=== PATIENT | male | born 1975 ===

== ENCOUNTER 2017-12-28 14:59 | Inpatient (IN) | payer OTHER ==
--- NOTE | 2017-12-28 15:41 | C.PDOC ---
History Of Present Illness NEW ONSET HEMOPTYSIS X 2 DAYS. +SUBJ FEVER X 4 DAYS. DENIES VOMITING, HEMETEMESIS. NO CP, SOB. DENIES SICK CONTACT OR OUTSIDE US TRAVEL EXAM MILD DIST NONTOXIC HEENT NEG LUNGS +ACTIVE HEMOPTYSIS CTA B/L NO WHEEZE RALES NO EDEMA CV RRR REMAINDER NEG Time Seen by Provider: 12/28/17 15:17 Chief Complaint (Nursing): Abdominal Pain History Per: Patient History/Exam Limitations: no limitations Past Medical History Reviewed: Historical Data, Nursing Documentation, Vital Signs Vital Signs: Last Vital Signs Temp 98.2 F 12/28/17 15:07 Pulse 93 H 12/28/17 16:26 Resp 20 12/28/17 16:26 BP 147/88 12/28/17 16:26 Pulse Ox 98 12/28/17 17:43 Family History: States: No Known Family Hx - Social History Hx Alcohol Use: No Hx Substance Use: No - Immunization History Hx Tetanus Toxoid Vaccination: No Hx Influenza Vaccination: No Hx Pneumococcal Vaccination: No Review Of Systems Constitutional: Positive for: Fever. Negative for: Weakness Cardiovascular: Negative for: Chest Pain, Orthopnea Respiratory: Positive for: Hemoptysis Gastrointestinal: Negative for: Vomiting, Hematochezia, Hematemesis Genitourinary: Negative for: Dysuria Musculoskeletal: Negative for: Back Pain Neurological: Negative for: Weakness, Numbness, Headache, Dizziness Physical Exam - Physical Exam Appears: Non-toxic, No Acute Distress Skin: Warm, Dry, No Rash Head: Normacephalic Oral Mucosa: Moist Lips: Normal Appearing Neck: Normal ROM Chest: Symmetrical Cardiovascular: Rhythm Regular, No Murmur Respiratory: Other (+ACTIVE HEMOPTYSIS CTA B/L NO WHEEZE RALES) Extremity: Normal ROM, No Deformity, No Swelling Neurological/Psych: Oriented x3, Normal Speech ED Course And Treatment - Laboratory Results Result Diagrams: 12/28/17 15:50 12/28/17 15:50 ECG: Interpreted By Me ECG Rhythm: Sinus Rhythm ECG Interpretation: Normal Rate From EC O2 Sat by Pulse Oximetry: 98 (RA) Pulse Ox Interpretation: Normal Progress - Re-Evaluation Re-evaluation Note: 12/28/17 17:43 NARD VSS. NO RECUR HEMOPTYSIS SINCE INITIAL EVAL. CT PENDING 12/28/17 18:32 D/[facility] AWARE OF ER FINDINGS WILL ADMIT. ADMIT UNDER DR IBANEZ - Data Reviewed Data Reviewed: Lab, Diagnostic imaging, EKG, Old records - Critical Care Citical Care: Excluding Proc Time Critical Care Time: 120 minutes Disposition Counseled Patient/Family Regarding: Studies Performed, Diagnosis - Disposition Disposition: HOSPITALIZED Disposition Time: 18:29 Condition: STABLE Forms: [facility] (Albanian) - POA Present On Arrival: None - Clinical Impression Clinical Impression: Pneumonia, Hemoptysis, Hypokalemia - Scribe Statement The provider has reviewed the documentation as recorded by the Scribe (Jemima Boyd) All medical record entries made by the Scribe were at my direction and personally dictated by me. I have reviewed the chart and agree that the record accurately reflects my personal performance of the history, physical exam, medical decision making, and the department course for this patient. I have also personally directed, reviewed, and agree with the discharge instructions and disposition. Decision To Admit - Pt Status Changed To: Hospital Disposition Of: Inpatient - Admit Certification Admit to Inpatient:: After my assessment, the patient will require hospitalization for at least two midnights. This is because of the severity of symptoms shown, intensity of services needed, and/or the medical risk in this patient being treated as an outpatient. - InPatient: Physician Admission Certification: I certify that this patient requires 2 or more midnights of care for the following reason:: SEE NOTE - . Bed Request Type: Regular Admitting Physician: Cas Ibanez Patient Diagnosis: Pneumonia, Hemoptysis, Hypokalemia
[2017-12-28 16:00] LABS: BASO % 0.6 % (0.0-2.0); EOS # 0.1 K/uL (0.0-0.7); EOS % 1.2 % (0.0-4.0); HEMOGLOBIN 11.3 g/dL (12.0-18.0); LYMPH # 2.9 K/uL (1.0-4.3); LYMPH % 43.6 % (20.0-40.0); MEAN CORPUSCULAR HEMOGLOBIN 21.4 pg (27.0-31.0); MEAN CORPUSCULAR HGB CONC 31.9 g/dL (33.0-37.0); MEAN PLATELET VOLUME 8.8 fL (7.2-11.7); MONO # 0.5 K/uL (0.0-0.8); MONO % 6.8 % (0.0-10.0); NEUT # 3.2 K/uL (1.8-7.0); NEUT % 47.8 % (50.0-75.0); NRBC % 0.1 % (0.0-2.0); RBC 5.26 Mil/uL (4.40-5.90); WHITE BLOOD COUNT 6.7 K/uL (4.8-10.8)
[2017-12-28 16:03] LABS: MEAN CELL VOLUME 67.1 fL (80.0-94.0)
[2017-12-28 16:12] LABS: ALBUMIN 4.3 g/dL (3.5-5.0); ALT/SGPT 69 U/L (21-72); AST/SGOT 54 U/L (17-59); BLOOD UREA NITROGEN 7 mg/dL (9-20); CALCIUM 8.8 mg/dl (8.6-10.4); GFR AFRICAN-AMERICAN > 60; GFR NON-AFRICAN AMERICAN > 60
--- NOTE | 2017-12-28 16:17 | RAD ---
PROCEDURE: CHEST RADIOGRAPH, 1 VIEW HISTORY: Pneumonia COMPARISON: No prior FINDINGS: LUNGS: Vague patchy opacity seen in the left lung base could represent atelectasis versus developing infiltrate. Suspect minor right basilar atelectasis. Slight elevation right hemidiaphragm PLEURA: No pneumothorax or pleural fluid seen. CARDIOVASCULAR: Cardiomegaly. OSSEOUS STRUCTURES: No significant abnormalities. VISUALIZED UPPER ABDOMEN: Normal. OTHER FINDINGS: None. IMPRESSION: Vague patchy opacity seen in the left lung base could represent atelectasis versus developing infiltrate. Suspect minor right basilar atelectasis. Slight elevation right hemidiaphragm
[2017-12-28] MEDS ORDERED: Potassium Chloride 20 mEq/15 ml LIQ UD PO STA (16:27)
[2017-12-28 16:31] LABS: URINE BILIRUBIN NEGATIVE (NEGATIVE); URINE BLOOD NEGATIVE (NEGATIVE); URINE CLARITY Clear (Clear); URINE COLOR Straw (YELLOW); URINE GLUCOSE (UA) NORMAL (Normal); URINE LEUKOCYTE ESTERASE NEG Leu/uL (Negative); URINE PROTEIN NEGATIVE (NEGATIVE); URINE UROBILINOGEN NORMAL mg/dL (0.2-1.0)
[2017-12-28] MEDS ORDERED: Sodium Chloride 0.9% 1,000 ML ONE ×2 (16:42→20:34)
[2017-12-28] MEDS ORDERED: Potassium Chloride 20 mEq ER Tab PO ONE (16:42)
[2017-12-28] MEDS ORDERED: Iodixanol 320 MG/ML 100 ML BOTTLE IV ONE (17:57)
[2017-12-28] MEDS ORDERED: Azithromycin 500 MG in Sodium Chloride 0.9% 250 ML IV STA (18:28)
[2017-12-28] MEDS ORDERED: Azithromycin 500mg/250ML NS 500 MG/250 ML BAG IVPB ONE (18:51)
[2017-12-28 19:06] LABS: VENOUS BLOOD GAS BASE EXCESS 3.2 mmol/L (0.0-2.0); VENOUS BLOOD GAS PCO2 45 mmHg (40-60); VENOUS BLOOD GAS PO2 45 mm/Hg (30-55); VENOUS BLOOD PH 7.41 (7.32-7.43)
[2017-12-28] MEDS ORDERED: cefTRIAXone IV 1 gm in Dextros 50 ML IVPB ONE (19:20)
--- NOTE | 2017-12-28 20:15 | CP.PCM.HP ---
<Krish Lee Gennaro - Last Filed: 12/28/17 20:23> History of Present Illness - History of Present Illness History of Present Illness: CC: "I'm coughing up blood" HPI: Mr Plasencia is a 42 year old male with no significant past medical history who presents to [facility] because of fever, chills and hemoptysis which began 2 days ago. He says he was at work 2 days ago when he felt chills and shortly thereafter he fainted. He does not remember hitting his head. His co- workers say he was out for about 4 minutes. He came to then went home and felt fevers and began to have episodes of coughing up blood (with clots). He also endorses pleuritic chest pain (mid-sternal) worse with inspiration, loss of appetite, night sweats, malaise, all which have also occurred the past 2 days. All of these symptoms became progressively worse thus he came to the ER. He did not take any medications. He denies sputum production, emesis, weight loss, dysuria, alcohol use, tobacco use. 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 He came from [facility] 17 years ago and denies a hx of tuberculosis, or ever receiving shots for TB. He denies sick contacts, recent travel. PMD: none PMHx: none PSHx: none Allergies: NKA Home Meds: none FamHx: denies SocialHx: Denies tobacco use, alcohol use, illicit drug use. Lives with aunt at home. Works at a [employer] plant. From [facility], arrived 17 years ago and has not returned. Present on Admission - Present on Admission Any Indicators Present on Admission: No Review of Systems - Constitutional Constitutional: Chills, Fatigue, Fever, Lethargy, Malaise, Night Sweats, Weakness. absent: Headache - EENT Eyes: absent: Change in Vision Ears: absent: Ear Pain Nose/Mouth/Throat: absent: Epistaxis, Nasal Discharge, Bleeding Gums, Dysphagia - Cardiovascular Cardiovascular: Chest Pain, Diaphoresis. absent: Dyspnea, Palpitations, Pedal Edema - Respiratory Respiratory: Cough, Hemoptysis, Pain on Inspiration, Chest Congestion, Pain with Coughing. absent: Wheezing, Stridor, Excessive Mucous Production - Gastrointestinal Gastrointestinal: absent: Abdominal Pain, Constipation, Diarrhea - Genitourinary Genitourinary: absent: Dysuria - Musculoskeletal Musculoskeletal: absent: Arthralgias - Integumentary Integumentary: absent: Bleeding Lesions - Neurological Neurological: absent: Confusion, Dizziness Past Patient History - Infectious Disease Hx of Infectious Diseases: None - Past Social History Smoking Status: Never Smoked - PSYCHIATRIC Hx Substance Use: No - SURGICAL HISTORY Hx Surgeries: Yes Meds Allergies/Adverse Reactions: Allergies Allergy/AdvReac Type Severity Reaction Status Date / Time NSAIDS (Non-Steroidal Allergy Verified 12/28/17 20:54 Anti-Inflamma Physical Exam - Constitutional Appears: Well, No Acute Distress - Head Exam Head Exam: ATRAUMATIC, NORMAL INSPECTION - Eye Exam Eye Exam: EOMI Pupil Exam: PERRL - ENT Exam ENT Exam: Mucous Membranes Moist - Neck Exam Neck exam: Positive for: Normal Inspection. Negative for: Lymphadenopathy, Tenderness - Respiratory Exam Respiratory Exam: Decreased Breath Sounds, Rhonchi, Wheezes Additional comments: Decreased inspiratory effort - Unable to take a deep breath without coughing - Cardiovascular Exam Cardiovascular Exam: REGULAR RHYTHM, +S1, +S2. absent: JVD, Systolic Murmur - GI/Abdominal Exam GI & Abdominal Exam: Normal Bowel Sounds, Soft. absent: Distended, Firm, Guarding, Tenderness - Extremities Exam Extremities exam: Positive for: normal capillary refill, normal inspection, pedal pulses present. Negative for: tenderness - Neurological Exam Neurological exam: Alert, CN II-XII Intact, Oriented x3 - Skin Skin Exam: Intact, Normal Color, Warm Results - Vital Signs Recent Vital Signs: Last Vital Signs Temp 98.2 F 12/28/17 15:07 Pulse 93 H 12/28/17 16:26 Resp 20 12/28/17 16:26 BP 147/88 12/28/17 16:26 Pulse Ox 98 12/28/17 18:32 - Labs Result Diagrams: 12/28/17 15:50 12/28/17 15:50 Labs: Laboratory Results - last 24 hr 12/28/17 12/28/17 12/28/17 15:50 15:50 15:50 WBC 6.7 RBC 5.26 Hgb 11.3 L Hct 35.3 MCV 67.1 L MCH 21.4 L MCHC 31.9 L RDW 17.0 H Plt Count 209 MPV 8.8 Neut % (Auto) 47.8 L Lymph % (Auto) 43.6 H [place] % (Auto) 6.8 Eos % (Auto) 1.2 Baso % (Auto) 0.6 Neut # (Auto) 3.2 Lymph # (Auto) 2.9 [place] # (Auto) 0.5 Eos # (Auto) 0.1 Baso # (Auto) 0.0 Differential Comment D-Dimer, Quantitative < 200 pO2 VBG pH VBG pCO2 VBG HCO3 VBG Total CO2 VBG O2 Sat (Calc) VBG Base Excess VBG Potassium Glucose Lactate Sodium 143 Potassium 3.1 L Chloride 101 Carbon Dioxide 25 Anion Gap 20 BUN 7 L Creatinine 0.8 Est GFR ( Amer) > 60 Est GFR (Non-Af Amer) > 60 Random Glucose 110 Calcium 8.8 Total Bilirubin 0.7 AST 54 ALT 69 Alkaline Phosphatase 65 Total Protein 8.7 H Albumin 4.3 Globulin 4.4 H Albumin/Globulin Ratio 1.0 Venous Blood Potassium Urine Color Urine Clarity Urine pH Ur Specific [place] Urine Protein Urine Glucose (UA) Urine Ketones Urine Blood Urine Nitrate Urine Bilirubin Urine Urobilinogen Ur Leukocyte Esterase Urine WBC (Auto) Urine RBC (Auto) Influenza Typ A,B (EIA) 12/28/17 12/28/17 12/28/17 16:26 18:33 19:00 WBC RBC Hgb Hct MCV MCH MCHC RDW Plt Count MPV Neut % (Auto) Lymph % (Auto) [place] % (Auto) Eos % (Auto) Baso % (Auto) Neut # (Auto) Lymph # (Auto) [place] # (Auto) Eos # (Auto) Baso # (Auto) Differential Comment D-Dimer, Quantitative pO2 45 VBG pH 7.41 VBG pCO2 45 VBG HCO3 27.0 VBG Total CO2 29.9 H VBG O2 Sat (Calc) 81.7 H VBG Base Excess 3.2 H VBG Potassium 3.4 L Glucose 90 Lactate 0.8 Sodium 141.0 Potassium Chloride 107.0 Carbon Dioxide Anion Gap BUN Creatinine Est GFR ( Amer) Est GFR (Non-Af Amer) Random Glucose Calcium Total Bilirubin AST ALT Alkaline Phosphatase Total Protein Albumin Globulin Albumin/Globulin Ratio Venous Blood Potassium 3.4 L Urine Color Straw Urine Clarity Clear Urine pH 7.0 Ur Specific [place] 1.004 Urine Protein Negative Urine Glucose (UA) Normal Urine Ketones Negative Urine Blood Negative Urine Nitrate Negative Urine Bilirubin Negative Urine Urobilinogen Normal Ur Leukocyte Esterase Neg Urine WBC (Auto) < 1 Urine RBC (Auto) < 1 Influenza Typ A,B (EIA) Negative for flu a/b Assessment & Plan (1) Hemoptysis Assessment and Plan: Likely 2/2 to community acquired pneumonia, will need to rule out tuberculosis No leukocytosis, afebrile, anemia 2/2 to hemoptysis - monitor Hgb Airbone respiratory isolation Encourage incentive spirometry Q2H Labs/Diagnostics: UA: NORMAL F/U procalcitonin F/U legionella Ag urine, rapid strep, mycoplasma pneumoniae IgM, strep pneumoniae Ag urine F/U Blood Cx, Urine Cx, Sputum Cx F/U HIV F/U Quantiferon TB Gold Imaging: CXR 12/28/17: Vague patchy opacity seen in left lung base could represent atelectasis versus developing infiltrate. CT Chest w/ contrast 12/28/17: Pending official read Meds: Azithromycin 500mg IVPB QD Ceftriaxone 1g IVPB Q12H Tylenol 650mg PO Q6H PRN for temp > 100.4 Florastor 250mg PO BID Status: Acute Priority: High (2) Syncope Assessment and Plan: Syncopal episode 2 days prior to admission likely secondary to weakness and dehydration from respiratory infx Need to rule out other etiologies Labs/Diagnostics: EKG - NSR, Indeterminate axis F/U Lipid Panel, TSH/Free T4, GUADALUPE panel Imaging: F/U Head CT w/o contrast: F/U Brain MRI w/o contrast: F/U ECHO: F/U Carotid Dopplers: Meds: NS IV 100cc/hr Status: Acute Priority: High (3) Prophylactic measure Assessment and Plan: Heart healthy diet Protonix 40mg PO QD AO contraindicated 2/2 to hemoptysis SCDs Status: Acute Priority: Low <Cas Ibanez - Last Filed: 12/29/17 06:21> Results - Vital Signs Recent Vital Signs: Last Vital Signs Temp 98.3 F 12/29/17 00:46 Pulse 83 12/29/17 01:33 Resp 20 12/29/17 00:46 BP 107/71 12/29/17 00:46 Pulse Ox 97 12/29/17 00:46 - Labs Result Diagrams: 12/28/17 15:50 12/28/17 15:50 Labs: Laboratory Results - last 24 hr 12/28/17 12/28/17 12/28/17 15:50 15:50 15:50 WBC 6.7 RBC 5.26 Hgb 11.3 L Hct 35.3 MCV 67.1 L MCH 21.4 L MCHC 31.9 L RDW 17.0 H Plt Count 209 MPV 8.8 Neut % (Auto) 47.8 L Lymph % (Auto) 43.6 H [place] % (Auto) 6.8 Eos % (Auto) 1.2 Baso % (Auto) 0.6 Neut # (Auto) 3.2 Lymph # (Auto) 2.9 [place] # (Auto) 0.5 Eos # (Auto) 0.1 Baso # (Auto) 0.0 Differential Comment D-Dimer, Quantitative < 200 pO2 VBG pH VBG pCO2 VBG HCO3 VBG Total CO2 VBG O2 Sat (Calc) VBG Base Excess VBG Potassium Glucose Lactate Sodium 143 Potassium 3.1 L Chloride 101 Carbon Dioxide 25 Anion Gap 20 BUN 7 L Creatinine 0.8 Est GFR ( Amer) > 60 Est GFR (Non-Af Amer) > 60 Random Glucose 110 Calcium 8.8 Total Bilirubin 0.7 AST 54 ALT 69 Alkaline Phosphatase 65 Total Creatine Kinase CK-MB (Mass) Troponin I Total Protein 8.7 H Albumin 4.3 Globulin 4.4 H Albumin/Globulin Ratio 1.0 Procalcitonin Venous Blood Potassium Urine Color Urine Clarity Urine pH Ur Specific [place] Urine Protein Urine Glucose (UA) Urine Ketones Urine Blood Urine Nitrate Urine Bilirubin Urine Urobilinogen Ur Leukocyte Esterase Urine WBC (Auto) Urine RBC (Auto) Influenza Typ A,B (EIA) Ur L.pneumophila Ag Grp A Beta Strep Ag 12/28/17 12/28/17 12/28/17 16:26 18:33 19:00 WBC RBC Hgb Hct MCV MCH MCHC RDW Plt Count MPV Neut % (Auto) Lymph % (Auto) [place] % (Auto) Eos % (Auto) Baso % (Auto) Neut # (Auto) Lymph # (Auto) [place] # (Auto) Eos # (Auto) Baso # (Auto) Differential Comment D-Dimer, Quantitative pO2 45 VBG pH 7.41 VBG pCO2 45 VBG HCO3 27.0 VBG Total CO2 29.9 H VBG O2 Sat (Calc) 81.7 H VBG Base Excess 3.2 H VBG Potassium 3.4 L Glucose 90 Lactate 0.8 Sodium 141.0 Potassium Chloride 107.0 Carbon Dioxide Anion Gap BUN Creatinine Est GFR ( Amer) Est GFR (Non-Af Amer) Random Glucose Calcium Total Bilirubin AST ALT Alkaline Phosphatase Total Creatine Kinase CK-MB (Mass) Troponin I Total Protein Albumin Globulin Albumin/Globulin Ratio Procalcitonin Venous Blood Potassium 3.4 L Urine Color Straw Urine Clarity Clear Urine pH 7.0 Ur Specific [place] 1.004 Urine Protein Negative Urine Glucose (UA) Normal Urine Ketones Negative Urine Blood Negative Urine Nitrate Negative Urine Bilirubin Negative Urine Urobilinogen Normal Ur Leukocyte Esterase Neg Urine WBC (Auto) < 1 Urine RBC (Auto) < 1 Influenza Typ A,B (EIA) Negative for flu a/b Ur L.pneumophila Ag Grp A Beta Strep Ag 12/28/17 12/28/17 12/28/17 20:19 20:38 20:43 WBC RBC Hgb Hct MCV MCH MCHC RDW Plt Count MPV Neut % (Auto) Lymph % (Auto) [place] % (Auto) Eos % (Auto) Baso % (Auto) Neut # (Auto) Lymph # (Auto) [place] # (Auto) Eos # (Auto) Baso # (Auto) Differential Comment D-Dimer, Quantitative pO2 VBG pH VBG pCO2 VBG HCO3 VBG Total CO2 VBG O2 Sat (Calc) VBG Base Excess VBG Potassium Glucose Lactate Sodium Potassium Chloride Carbon Dioxide Anion Gap BUN Creatinine Est GFR ( Amer) Est GFR (Non-Af Amer) Random Glucose Calcium Total Bilirubin AST ALT Alkaline Phosphatase Total Creatine Kinase 347 H CK-MB (Mass) 1.01 Troponin I < 0.0120 Total Protein Albumin Globulin Albumin/Globulin Ratio Procalcitonin Venous Blood Potassium Urine Color Urine Clarity Urine pH Ur Specific [place] Urine Protein Urine Glucose (UA) Urine Ketones Urine Blood Urine Nitrate Urine Bilirubin Urine Urobilinogen Ur Leukocyte Esterase Urine WBC (Auto) Urine RBC (Auto) Influenza Typ A,B (EIA) Ur L.pneumophila Ag Negative Grp A Beta Strep Ag Negative 12/28/17 20:43 WBC RBC Hgb Hct MCV MCH MCHC RDW Plt Count MPV Neut % (Auto) Lymph % (Auto) [place] % (Auto) Eos % (Auto) Baso % (Auto) Neut # (Auto) Lymph # (Auto) [place] # (Auto) Eos # (Auto) Baso # (Auto) Differential Comment D-Dimer, Quantitative pO2 VBG pH VBG pCO2 VBG HCO3 VBG Total CO2 VBG O2 Sat (Calc) VBG Base Excess VBG Potassium Glucose Lactate Sodium Potassium Chloride Carbon Dioxide Anion Gap BUN Creatinine Est GFR ( Amer) Est GFR (Non-Af Amer) Random Glucose Calcium Total Bilirubin AST ALT Alkaline Phosphatase Total Creatine Kinase CK-MB (Mass) Troponin I Total Protein Albumin Globulin Albumin/Globulin Ratio Procalcitonin < 0.05 L Venous Blood Potassium Urine Color Urine Clarity Urine pH Ur Specific [place] Urine Protein Urine Glucose (UA) Urine Ketones Urine Blood Urine Nitrate Urine Bilirubin Urine Urobilinogen Ur Leukocyte Esterase Urine WBC (Auto) Urine RBC (Auto) Influenza Typ A,B (EIA) Ur L.pneumophila Ag Grp A Beta Strep Ag Assessment & Plan - Date & Time Date: 12/29/17 (I have seen and examined the patient. I agree with the findings and plan of care as documented by Dr. Lee. Patient with pneumonia. Sputum and blood cultures. Azithromycin and Rocephin for now. Also with hemoptysis. Respiratory isolation. Rule out TB. Also complained of syncopal episode. CT head. 2D Echo. Carotid dopplers. Fall precautions. Monitor for acute changes.) Time: 06:19 Attending/Attestation - Attestation I have personally seen and examined this patient.: Yes I have fully participated in the care of the patient.: Yes I have reviewed all pertinent clinical information: Yes
[2017-12-28] MEDS: Sodium Chloride 0.9% 1,000 ML IV SCH (20:40)
[2017-12-28 21:18] LABS: CK-MB 1.01 ng/mL (0.0-3.38)
[2017-12-29] MEDS: Sodium Chloride 0.9% 1,000 ML IV SCH ×2 (06:48→16:55)
[2017-12-29 07:51] LABS: BASO % 0.2 % (0.0-2.0); EOS # 0.1 K/uL (0.0-0.7); EOS % 1.6 % (0.0-4.0); HEMOGLOBIN 9.8 g/dL (12.0-18.0); LYMPH # 1.9 K/uL (1.0-4.3); LYMPH % 28.7 % (20.0-40.0); MEAN CORPUSCULAR HEMOGLOBIN 21.6 pg (27.0-31.0); MEAN CORPUSCULAR HGB CONC 32.2 g/dL (33.0-37.0); MEAN PLATELET VOLUME 8.9 fL (7.2-11.7); MONO # 0.5 K/uL (0.0-0.8); MONO % 7.7 % (0.0-10.0); NEUT # 4.2 K/uL (1.8-7.0); NEUT % 61.8 % (50.0-75.0); RBC 4.53 Mil/uL (4.40-5.90); RED CELL DISTRIBUTION WIDTH 16.7 % (11.5-14.5); WHITE BLOOD COUNT 6.8 K/uL (4.8-10.8)
[2017-12-29 08:06] LABS: ALBUMIN 3.5 g/dL (3.5-5.0); ALT/SGPT 47 U/L (21-72); AST/SGOT 37 U/L (17-59); BLOOD UREA NITROGEN 7 mg/dL (9-20); CALCIUM 8.3 mg/dl (8.6-10.4); GFR AFRICAN-AMERICAN > 60; GFR NON-AFRICAN AMERICAN > 60; HDL CHOLESTEROL 22 mg/dL (30-70); LDL CHOLESTEROL 54 mg/dL (0-129)
--- NOTE | 2017-12-29 08:28 | CP.PCM.PN ---
<Guerita Denson - Last Filed: 12/29/17 16:04> Subjective - Date & Time of Evaluation Date of Evaluation: 12/29/17 Time of Evaluation: 10:50 - Subjective Subjective: PGY 2 Medicine Note- Dr. Radford's service Patient seen and examined in no apparent acute distress. Patient accompanied by aunt and family friends bedside. Per aunt, patient was having repeated coughing spells of hemoptysis which increased over the course of the past two days. Patient states that he coughed up some some blood as well overnight. Patient denies chest pain, headaches, nausea, vomiting, or recent travel. Objective - Vital Signs/Intake and Output Vital Signs (last 24 hours): Temp Pulse Resp BP Pulse Ox 98.3 F 83 20 107/71 97 12/29/17 00:46 12/29/17 01:33 12/29/17 00:46 12/29/17 00:46 12/29/17 00:46 - Medications Medications: Current Medications Acetaminophen (Tylenol 325mg Tab) 650 mg PO Q6 PRN PRN Reason: Fever >100.4 F Azithromycin 500 mg/ Sodium (Chloride) 250 mls @ 166.667 mls/hr IVPB DAILY JOHN PRN Reason: Protocol Ceftriaxone Sodium 1 gm/ (Sodium Chloride) 100 mls @ 100 mls/hr IVPB Q12H JOHN PRN Reason: Protocol Sodium Chloride (Sodium Chloride 0.9%) 1,000 mls @ 100 mls/hr IV .Q10H [facility] Last Admin: 12/29/17 06:48 Dose: 100 mls/hr Pantoprazole Sodium (Protonix Ec Tab) 40 mg PO DAILY [facility] Pneumococcal Polyvalent Vaccine (Pneumovax 23 Vaccine) 0.5 ml IM .ONCE ONE Stop: 12/31/17 14:01 Saccharomyces Boulardii (Florastor) 250 mg PO BID JOHN - Labs Labs: 12/29/17 07:27 12/29/17 07:27 - Constitutional Appears: Non-toxic, No Acute Distress - Head Exam Head Exam: ATRAUMATIC, NORMAL INSPECTION, NORMOCEPHALIC - Eye Exam Eye Exam: EOMI, Normal appearance, PERRL Pupil Exam: NORMAL ACCOMODATION - ENT Exam ENT Exam: Mucous Membranes Moist - Neck Exam Neck Exam: Full ROM - Respiratory Exam Respiratory Exam: Decreased Breath Sounds (left lower lung mahajan). absent: Chest Wall Tenderness, Clear to Ausculation Bilateral, Prolonged Expiratory Phase, Wheezes, Stridor - Cardiovascular Exam Cardiovascular Exam: +S1, +S2 - GI/Abdominal Exam GI & Abdominal Exam: Soft, Normal Bowel Sounds. absent: Guarding, Tenderness - Extremities Exam Extremities Exam: Full ROM. absent: Pedal Edema - Back Exam Back Exam: Full ROM, NORMAL INSPECTION - Neurological Exam Neurological Exam: Alert, Awake, CN II-XII Intact, Oriented x3. absent: Motor Sensory Deficit Additional comments: sensation intact, awake, alert, oriented, muscle strength testing intact; exam limited by coughing spells. - Psychiatric Exam Psychiatric exam: Normal Affect, Normal Mood - Skin Skin Exam: Dry, Intact, Normal Color, Warm Assessment and Plan - Assessment and Plan (Free Text) Assessment: Assessment & Plan (1) Hemoptysis Assessment and Plan: Likely secondary to community acquired pneumonia, will need to rule out tuberculosis No leukocytosis, afebrile, anemia secondary to hemoptysis - monitor Hgb Airborne respiratory isolation Encourage incentive spirometry Q2H Labs/Diagnostics: UA: NORMAL procalcitonin less than 0.05 Legionella Ag urine, rapid Influenza, mycoplasma pneumoniae IgM, strep pneumoniae Ag-all negative F/U Blood Cx, Urine Culture negative, Sputum Culture- No group A species identified F/U HIV F/U Quantiferon TB Gold F/U PPD Imaging: CXR 12/28/17: Vague patchy opacity seen in left lung base could represent atelectasis versus developing infiltrate. CT Chest w/ contrast 12/28/17: Pneumonia appreciated in left lower lung mahajan; 6 cm dense consolidation, no apparent pulmonary embolism; mild cardiomegaly. Refer to complete report. Meds: Azithromycin 500mg IVPB daily ( Started 12/29) Ceftriaxone 1g IVPB Q12H ( Started 12/29) Tylenol 650mg PO Q6H PRN for temp > 100.4 Florastor 250mg PO BID ( Started 12/29) Will not administer pneumonia vaccine now since patient is currently being treated for pneumonia. Status: Acute Priority: High (2) Syncope Assessment and Plan: Syncopal episode 2 days prior to admission likely secondary to weakness and dehydration from respiratory infection Need to rule out other etiologies Labs/Diagnostics: Lipid Panel: HDL low, Rest of panel relatively within normal limits, TSH/Free T4 WNL, Troponin 1 within normal limits Imaging: F/U Head CT w/o contrast: Negative for acute ischemic or hemorrhagic changes F/U Brain MRI w/o contrast cancelled at this time in light of largely negative neuro clinical findings. Stable Head CT. F/U ECHO F/U Carotid Dopplers Meds: NS IV 100cc/hr Status: Acute Priority: High (3) Prophylactic measure Assessment and Plan: Heart healthy diet Protonix 40mg PO QD Anticoagulation contraindicated secondary to hemoptysis SCDs Status: Acute Priority: Low [place], PGY 2 <Мария Radford V - Last Filed: 12/29/17 16:41> Objective - Vital Signs/Intake and Output Vital Signs (last 24 hours): Temp Pulse Resp BP Pulse Ox 98 F 83 20 129/79 98 12/29/17 15:00 12/29/17 15:37 12/29/17 15:00 12/29/17 15:00 12/29/17 15:00 - Medications Medications: Current Medications Acetaminophen (Tylenol 325mg Tab) 650 mg PO Q6 PRN PRN Reason: Fever >100.4 F Azithromycin 500 mg/ Sodium (Chloride) 250 mls @ 166.667 mls/hr IVPB DAILY JOHN PRN Reason: Protocol Last Admin: 12/29/17 10:02 Dose: 166.667 mls/hr Ceftriaxone Sodium 1 gm/ (Sodium Chloride) 100 mls @ 100 mls/hr IVPB Q12H JOHN PRN Reason: Protocol Last Admin: 12/29/17 09:12 Dose: 100 mls/hr Sodium Chloride (Sodium Chloride 0.9%) 1,000 mls @ 100 mls/hr IV .Q10H JOHN Last Admin: 12/29/17 06:48 Dose: 100 mls/hr Pantoprazole Sodium (Protonix Ec Tab) 40 mg PO DAILY JOHN Last Admin: 12/29/17 09:12 Dose: 40 mg Saccharomyces Boulardii (Florastor) 250 mg PO BID JOHN Last Admin: 12/29/17 09:12 Dose: 250 mg Tuberculin PPD (Tubersol) 5 tu ID ONCE ONE Stop: 12/29/17 16:31 - Labs Labs: 12/29/17 07:27 12/29/17 07:27 Attending/Attestation - Attestation I have personally seen and examined this patient.: Yes I have fully participated in the care of the patient.: Yes I have reviewed all pertinent clinical information, including history, physical exam and plan: Yes Notes (Text): Patient seen, examined and case discussed with medical lab scientist. Patient seen with family present including 1 aunt and 2 friends. patient permits me to talk about his medical history in front his family. Patient reports 3 days of coughing up blood. patient denies using NSAIDs. patient denies recent travel nor trauma Discussed with nurse, Odalis, she was endorsed by her colleague there was blood in the sputum container which was sent for AFB this morning. We have ordered for PPD test to check for TB exposure. Discussed with nursing staff, hemoglobin trended from 11.1-->9.8 will hold off blood transfusion since patient is not symptomatic. Will repeat tomorrow to monitor H/H/ Patient is currently on Rocephin 1 gram IV Q12 and Azithromycin 1gram IV Q daily. Avelox is not available on hospital formulary. 1) Hemoptysis Pneumonia Assessment and Plan: * Likely secondary to community acquired pneumonia, will need to rule out tuberculosis * No leukocytosis, afebrile, anemia secondary to hemoptysis - monitor Hgb * Airborne respiratory isolation as precaution until TB is ruled out * Encourage incentive spirometry Q2H Labs/Diagnostics: * UA: NORMAL, Urine Culture negative, * procalcitonin less than 0.05 * Legionella Ag urine, rapid Influenza, mycoplasma pneumoniae IgM, strep pneumoniae Ag-all negative * F/U Blood Cx, * Sputum Culture- No group A species identified * F/U HIV * F/U Quantiferon TB Gold * F/U PPD Imaging: * CXR 12/28/17: Vague patchy opacity seen in left lung base could represent atelectasis versus developing infiltrate. * CT Chest w/ contrast 12/28/17: Pneumonia appreciated in left lower lung mahajan ; 6 cm dense consolidation, no apparent pulmonary embolism; mild cardiomegaly. Refer to complete report. Meds: * Azithromycin 500mg IVPB daily (Started 12/29/17) * Ceftriaxone 1g IVPB Q12H ( Started 12/29/17) * Tylenol 650mg PO Q6H PRN for temp > 100.4 * Florastor 250mg PO BID ( Started 4/1) * Will not administer pneumonia vaccine now since patient is currently being treated for pneumonia. Status: Acute Priority: High (2) Syncope Assessment and Plan: * Syncopal episode 2 days prior to admission likely secondary to weakness and dehydration from respiratory infection * Labs/Diagnostics: Lipid Panel: HDL low, Rest of panel relatively within normal limits, TSH/Free T4 WNL, Troponin 1 within normal limits Imaging: * F/U Head CT w/o contrast: Negative for acute ischemic or hemorrhagic changes * F/U Brain MRI w/o contrast cancelled at this time in light of largely negative neuro clinical findings. Stable Head CT. Patient is neurologically intact. Not suspecting stroke. * F/U ECHO * F/U Carotid Dopplers Meds: * NS IV 100cc/hr Status: Acute Priority: High (3) Anemia Assessment and Plan: * will check reticulocyte count, B12, Folate, iron studies (iron, TIBC, ferritin , iron saturation), haptoglobin * Suspecting secondary to hemotypsis (4) Prophylactic measure Assessment and Plan: * Heart healthy diet * Protonix 40mg PO QDaily * Anticoagulation contraindicated secondary to hemoptysis * SCDs Status: Acute Priority: Low
[2017-12-29] MEDS: Pantoprazole 40 mg EC Tab PO SCH (09:12)
[2017-12-29] MEDS: Saccharomyces Boulardi 250 mg Cap PO SCH ×2 (09:12→17:33)
[2017-12-29] MEDS: Azithromycin 500 MG in Sodium Chloride 0.9% 250 ML IVPB SCH (10:02)
--- NOTE | 2017-12-29 10:19 | CT ---
PROCEDURE: CT HEAD WITHOUT CONTRAST. HISTORY: Syncopal episode COMPARISON: None available. TECHNIQUE: Contiguous helical/transaxial computed tomography images were obtained through the head/brain without intravenous contrast. Radiation dose: Total exam DLP = 802.68 mGy-cm. This CT exam was performed using one or more of the following dose reduction techniques: Automated exposure control, adjustment of the mA and/or kV according to patient size, and/or use of iterative reconstruction technique. FINDINGS: HEMORRHAGE: No intracranial hemorrhage. BRAIN: No evidence of large acute infarct. No obvious parenchymal nor extra-axial mass or collection seen on this noncontrast study. Mild generalized volume loss. VENTRICLES: The no obstructive hydrocephalus. There is mild asymmetry of the lateral ventricles left-sided which slightly larger than the right felt to represent an anatomic variation. CALVARIUM: Unremarkable. PARANASAL SINUSES: Mild mucosal thickening both maxillary antra left greater than right. There is also mild mucosal thickening in the ethmoid air complex extending superiorly into the frontal sinus more so on the right side. MASTOID AIR CELLS: Unremarkable as visualized. No inflammatory changes. OTHER FINDINGS: None. IMPRESSION: No acute intracranial hemorrhage. Mucoperiosteal inflammatory changes within at aforementioned paranasal sinuses. The the
--- NOTE | 2017-12-29 14:03 | CT ---
PROCEDURE: CT chest 12/28/2017 HISTORY: Cough and fever. COMPARISON: Comparison made with chest radiograph earlier same day TECHNIQUE: Contiguous axial images were obtained through the chest with intravenous contrast enhancement. Sagittal and coronal reconstructions were performed. IV contrast: 100 cc Visipaque 320 contrast material Radiation dose (DLP): 544.96 mGy-cm. This CT exam was performed using one or more of the following dose reduction techniques: Automated exposure control, adjustment of the mA and/or kV according to patient size, and/or use of iterative reconstruction technique. FINDINGS: LUNGS: There is focal infiltrate/atelectasis left lower lobe with more dense consolidation in the superior aspect left lower lobe. . . Atelectasis and or infiltrate left lingular region also felt to be present. . There is mild atelectasis right lower lung field however developing right lower lobe infiltrate should be excluded. MEDIASTINUM: Heart size is borderline/mildly enlarged. No significant pericardial effusion. Ascending thoracic aorta measures approximately 3.27 cm and descending thoracic aorta measures approximately 2.7 cm. Pulmonary trunk measures approximately 2.8 cm. Though this examination was not dedicated to the to evaluate for a pulmonary embolus, the pulmonary trunk as well as right and left main and lobar branches of the pulmonary arteries appear well opacified with no large central filling defects. No significant mediastinal or hilar adenopathy. There is a tiny hiatal hernia. PLEURA: No evidence of pleural effusion or pneumothorax BONES: No fracture. No destructive lesion. UPPER ABDOMEN: Liver exhibits normal size. Moderate the diffuse fatty hepatic infiltration. Spleen is mildly enlarged in CC dimension measuring just approximately 13.7 cm in greatest dimension. No obvious splenic mass or collection. OTHER FINDINGS: Questionable of curvilinear calcification or vascular enhancement along the right parasagittal apex of the thyroid cartilage. Minor multilevel degenerative spondylosis of the thoracic spine. IMPRESSION: Left lower lobe pneumonia. Minor localized atelectasis and/or infiltrate left lingular region. Right basilar atelectasis. Moderate fatty hepatic infiltration. Spleen appears mildly enlarged in CC dimension as described [facility]
[2017-12-29] MEDS ORDERED: Tuberculin 5 Units/0.1 ml Inj ID ONE ×2 (14:30→16:30)
[2017-12-29] MEDS ORDERED: Tuberculin 5 Units/0.1 ml Inj ID SCH (15:30)
[2017-12-29 21:16] LABS: IRON 18 ug/dL (49-181)
[2017-12-29 21:26] LABS: % IRON SATURATION 6 (20-55); TOTAL IRON BINDING CAPACITY 308 ug/dL (250-450)
[2017-12-30] MEDS: Sodium Chloride 0.9% 1,000 ML IV SCH ×3 (01:46→21:53)
[2017-12-30 07:05] LABS: BASO % 0.4 % (0.0-2.0); EOS # 0.2 K/uL (0.0-0.7); EOS % 3.2 % (0.0-4.0); HEMOGLOBIN 9.8 g/dL (12.0-18.0); LYMPH # 2.1 K/uL (1.0-4.3); LYMPH % 40.9 % (20.0-40.0); MEAN CELL VOLUME 67.6 fL (80.0-94.0); MEAN CORPUSCULAR HEMOGLOBIN 21.7 pg (27.0-31.0); MEAN CORPUSCULAR HGB CONC 32.1 g/dL (33.0-37.0); MEAN PLATELET VOLUME 8.6 fL (7.2-11.7); MONO # 0.4 K/uL (0.0-0.8); MONO % 7.8 % (0.0-10.0); NEUT # 2.5 K/uL (1.8-7.0); NEUT % 47.7 % (50.0-75.0); PLATELET COUNT 197 K/uL (130-400); RBC 4.53 Mil/uL (4.40-5.90); RED CELL DISTRIBUTION WIDTH 16.9 % (11.5-14.5); WHITE BLOOD COUNT 5.2 K/uL (4.8-10.8)
[2017-12-30 07:28] LABS: ALB/GLOB RATIO 0.9 (1.0-2.1); ALBUMIN 3.4 g/dL (3.5-5.0); ALT/SGPT 40 U/L (21-72); AST/SGOT 33 U/L (17-59); BLOOD UREA NITROGEN 7 mg/dL (9-20); CALCIUM 8.3 mg/dl (8.6-10.4); GFR AFRICAN-AMERICAN > 60; GFR NON-AFRICAN AMERICAN > 60
[2017-12-30 07:46] LABS: % IRON SATURATION 6 (20-55); TOTAL IRON BINDING CAPACITY 312 ug/dL (250-450)
[2017-12-30 08:18] LABS: FERRITIN 18.7 ng/mL
[2017-12-30 08:48] LABS: FOLATE 13.1 ng/mL
--- NOTE | 2017-12-30 09:03 | CP.PCM.PN ---
<Krish Lee - Last Filed: 12/30/17 15:59> Subjective - Date & Time of Evaluation Date of Evaluation: 12/30/17 Time of Evaluation: 09:00 - Subjective Subjective: PGY-[address] Delmy Siddiqui. No acute events noted overnight. Patient had a small amount of blood collected from a bout of hemoptysis earlier this morning. Patient admits to fatigue. Otherwise does not offer any other complaints. He was coughing on physical exam but there was no production of blood. Denies chest pain, lightheadedness, shortness of breath, nausea, vomiting, diarrhea. Objective - Vital Signs/Intake and Output Vital Signs (last 24 hours): Temp Pulse Resp BP Pulse Ox 97.5 F L 76 20 113/73 96 12/30/17 08:33 12/30/17 08:33 12/30/17 08:33 12/30/17 08:33 12/30/17 08:33 - Medications Medications: Current Medications Acetaminophen (Tylenol 325mg Tab) 650 mg PO Q6 PRN PRN Reason: Fever >100.4 F Azithromycin 500 mg/ Sodium (Chloride) 250 mls @ 166.667 mls/hr IVPB DAILY JOHN PRN Reason: Protocol Last Admin: 12/29/17 10:02 Dose: 166.667 mls/hr Ceftriaxone Sodium 1 gm/ (Sodium Chloride) 100 mls @ 100 mls/hr IVPB Q12H JOHN PRN Reason: Protocol Last Admin: 12/30/17 08:00 Dose: 100 mls/hr Sodium Chloride (Sodium Chloride 0.9%) 1,000 mls @ 100 mls/hr IV .Q10H JOHN Last Admin: 12/30/17 01:46 Dose: 100 mls/hr Pantoprazole Sodium (Protonix Ec Tab) 40 mg PO DAILY JOHN Last Admin: 12/29/17 09:12 Dose: 40 mg Saccharomyces Boulardii (Florastor) 250 mg PO BID JOHN Last Admin: 12/29/17 17:33 Dose: 250 mg - Labs Labs: 12/30/17 06:54 12/30/17 06:54 - Additional Findings Additional findings: - Constitutional Appears: Non-toxic, No Acute Distress - Head Exam Head Exam: ATRAUMATIC, NORMAL INSPECTION, NORMOCEPHALIC - Eye Exam Eye Exam: EOMI, Normal appearance, PERRL Pupil Exam: NORMAL ACCOMODATION - ENT Exam ENT Exam: Mucous Membranes Moist - Neck Exam Neck Exam: Full ROM - Respiratory Exam Respiratory Exam: Decreased Breath Sounds (left lower lung mahajan). absent: Chest Wall Tenderness, Clear to Ausculation Bilateral, Prolonged Expiratory Phase, Wheezes, Stridor - Cardiovascular Exam Cardiovascular Exam: +S1, +S2 - GI/Abdominal Exam GI & Abdominal Exam: Soft, Normal Bowel Sounds. absent: Guarding, Tenderness - Extremities Exam Extremities Exam: Full ROM. absent: Pedal Edema - Back Exam Back Exam: Full ROM, NORMAL INSPECTION - Neurological Exam Neurological Exam: Alert, Awake, CN II-XII Intact, Oriented x3. absent: Motor Sensory Deficit Additional comments: sensation intact, awake, alert, oriented, muscle strength testing intact; exam limited by coughing spells. - Psychiatric Exam Psychiatric exam: Normal Affect, Normal Mood - Skin Skin Exam: Dry, Intact, Normal Color, Warm Assessment and Plan (1) Hemoptysis Status: Acute (2) Syncope Status: Acute (3) Prophylactic measure Status: Acute - Assessment and Plan (Free Text) Assessment: 1) Hemoptysis Pneumonia Assessment and Plan: * Likely secondary to community acquired pneumonia, will need to rule out tuberculosis * No leukocytosis, afebrile, anemia secondary to hemoptysis - monitor Hgb * Airborne respiratory isolation as precaution until TB is ruled out * Encourage incentive spirometry Q2H * Pulmonology consult, Dr Salazar. Does patient need a bronchoscopy? Labs/Diagnostics: * UA: NORMAL, Urine Culture negative, * procalcitonin less than 0.05 * Legionella Ag urine, rapid Influenza, mycoplasma pneumoniae IgM, strep pneumoniae Ag - ALL NEGATIVE * Blood Cx NEGATIVE up to date * Sputum Culture- No group A species identified * HIV NEGATIVE * F/U Quantiferon TB Gold * F/U PPD Imaging: * CXR 12/28/17: Vague patchy opacity seen in left lung base could represent atelectasis versus developing infiltrate. * CT Chest w/ contrast 12/28/17: Pneumonia appreciated in left lower lung mahajan ; 6 cm dense consolidation, no apparent pulmonary embolism; mild cardiomegaly. Refer to complete report. Meds: * Azithromycin 500mg IVPB daily (Started 12/29/17) * Ceftriaxone 1g IVPB Q12H (Started 12/29/17) * Tylenol 650mg PO Q6H PRN for temp > 100.4 * Florastor 250mg PO BID (Started 12/29) * Will not administer pneumonia vaccine now since patient is currently being treated for pneumonia. Status: Acute Priority: High (2) Syncope Assessment and Plan: * Syncopal episode 2 days prior to admission likely secondary to weakness and dehydration from respiratory infection * Labs/Diagnostics: Lipid Panel: HDL low, Rest of panel relatively within normal limits, TSH/Free T4 WNL, Troponin 1 all within normal limits Imaging: * Head CT w/o contrast: Negative for acute ischemic or hemorrhagic changes * CANCELLED Brain MRI w/o contrast at this time in light of largely negative neuro clinical findings. Stable Head CT. Patient is neurologically intact. Not suspecting stroke. * F/U ECHO official report * Carotid Dopplers does not suggest hemodynamically significant stenosis of right or left extracranial carotid arteries Meds: * NS IV 100cc/hr Status: Acute Priority: High (3) Anemia Assessment and Plan: * Hgb 11.1 -> 9.8 -> 9.8 * Iron LOW 18, TIBC NORMAL, % saturation LOW, Ferritin NORMAL * Vitamin B12 and Folate NORMAL * Haptoglobin ELEVATED, LDH NORMAL, Direct BILI NORMAL * Reticulocyte Index LOW -> Hypoproliferation * Suspecting secondary to hemotypsis however based on iron studies there seems to be a iron deficiency component to the anemia * Ferrlicet 125mg IVP x2 bags - then transition to ferrous sulfate 325mg PO QD (4) Prophylactic measure Assessment and Plan: * Heart healthy diet * Protonix 40mg PO QDaily * Anticoagulation contraindicated secondary to hemoptysis * SCDs Status: Acute Priority: Low <Michael Siddiqui - Last Filed: 12/30/17 19:06> Objective - Vital Signs/Intake and Output Vital Signs (last 24 hours): Temp Pulse Resp BP Pulse Ox 97.7 F 79 21 123/79 97 12/30/17 15:00 12/30/17 16:26 12/30/17 15:00 12/30/17 15:00 12/30/17 15:00 Intake and Output: 12/30/17 12/31/17 18:59 06:59 Intake Total 1390 Balance 1390 - Medications Medications: Current Medications Acetaminophen (Tylenol 325mg Tab) 650 mg PO Q6 PRN PRN Reason: Fever >100.4 F Ferric Sodium Gluconate Complex (Ferrlecit) 125 mg IVPB DAILY [facility] Stop: 12/31/17 10:01 Last Admin: 12/30/17 17:23 Dose: 125 mg Azithromycin 500 mg/ Sodium (Chloride) 250 mls @ 166.667 mls/hr IVPB DAILY JOHN PRN Reason: Protocol Last Admin: 12/30/17 10:28 Dose: 166.667 mls/hr Ceftriaxone Sodium 1 gm/ (Sodium Chloride) 100 mls @ 100 mls/hr IVPB Q12H JOHN PRN Reason: Protocol Last Admin: 12/30/17 08:00 Dose: 100 mls/hr Sodium Chloride (Sodium Chloride 0.9%) 1,000 mls @ 100 mls/hr IV .Q10H [facility] Last Admin: 12/30/17 11:56 Dose: 100 mls/hr Pantoprazole Sodium (Protonix Ec Tab) 40 mg PO DAILY [facility] Last Admin: 12/30/17 10:28 Dose: 40 mg Saccharomyces Boulardii (Florastor) 250 mg PO BID [facility] Last Admin: 12/30/17 17:23 Dose: 250 mg - Labs Labs: 12/30/17 06:54 12/30/17 06:54 Attending/Attestation - Attestation I have personally seen and examined this patient.: Yes I have fully participated in the care of the patient.: Yes I have reviewed all pertinent clinical information, including history, physical exam and plan: Yes Notes (Text): 12/30/17 19:03 Patient was seen and examined with the resident. Exam, assessment and plan were gone over with the resident. We will need to follow up with Pulmonology to see if patient needs a bronchoscopy. Will perform rectal exam on 12/31/17 with stool guaiac to cover our bases for the anemia. F/U Stool Cultures/AFB and PPD reading (which will be due on 12/31/17) F/U Monospot Test Michael Siddiqui D.O.
[2017-12-30] MEDS: Pantoprazole 40 mg EC Tab PO SCH (10:28)
[2017-12-30] MEDS: Azithromycin 500 MG in Sodium Chloride 0.9% 250 ML IVPB SCH (10:28)
[2017-12-30] MEDS: Saccharomyces Boulardi 250 mg Cap PO SCH ×2 (10:29→17:23)
[2017-12-30 13:25] LABS: BILIRUBIN,DIRECT 0.4 mg/dL (0.0-0.4)
--- NOTE | 2017-12-30 14:00 | VASCLAB ---
PROCEDURE: HISTORY: syncope COMPARISON: None available. TECHNIQUE: Grayscale and duplex Doppler evaluation of the cervical carotid and vertebral arteries were performed. The common carotid, carotid bifurcations and cervical Internal Carotid Artery (ICA) and proximal External Carotid Artery (ECA) were evaluated. The vertebral arteries were evaluated for gross patency and flow direction. Report prepared by Glenroy Buchanan, BS, RVT FINDINGS: RIGHT CAROTID ARTERIES: 1. Common Carotid Artery: No significant focal plaque formation of the right common carotid artery. Maximum Peak Systolic velocity: 81 cm/sec: End-diastolic velocity 24 cm/sec. 2. Carotid Bifurcation: plaque formation. Maximum Peak Systolic velocity: 72 cm/sec: End-diastolic velocity 18 cm/sec. 3. Internal Carotid Artery: Plaque description: 3.1. Proximal Segment: Peak systolic velocity 97 cm/sec: End-diastolic velocity 34 cm/sec - % stenosis 0-15% 3.2. Middle Segment: Peak systolic velocity 71 cm/sec: End-diastolic velocity 34 cm/sec - % stenosis 0-15% 3.3. Distal Segment: Peak systolic velocity 79 cm/sec: End-diastolic velocity 39 cm/sec - % stenosis 0-15% 4. External Carotid Artery: No significant focal plaque formation. Peak systolic velocity 106 cm/sec 5. ICA/CCA Ratio: 1.2 LEFT CAROTID ARTERIES: 1. Common Carotid Artery: No significant focal plaque formation of the left common carotid artery. Maximum Peak Systolic velocity: 84 cm/sec: End-diastolic velocity 35 cm/sec. 2. Carotid Bifurcation: plaque formation. Maximum Peak Systolic velocity: 89 cm/sec: End-diastolic velocity 30 cm/sec. 3. Internal Carotid Artery: Plaque description: 3.1. Proximal Segment: Peak systolic velocity 64 cm/sec: End-diastolic velocity 34 cm/sec - % stenosis 0-15% 3.2. Middle Segment: Peak systolic velocity 64 cm/sec: End-diastolic velocity 34 cm/sec - % stenosis 0-15% 3.3. Distal Segment: Peak systolic velocity 62 cm/sec: End-diastolic velocity 28 cm/sec - % stenosis 0-15% 4. External Carotid Artery: No significant focal plaque formation. Peak systolic velocity 87 cm/sec 5. ICA/CCA Ratio: 1.1 VERTEBRAL ARTERIES: 1. Right Vertebral Artery: The right vertebral artery flow direction is antegrade. 2. Left Vertebral Artery: The left vertebral artery flow direction is antegrade. OTHER FINDINGS: 1. Right Brachial Blood pressure: 120 mmHg. 2. Left Brachial Blood pressure: 116 mmHg. IMPRESSION: RIGHT: Duplex scan does not suggest hemodynamically significant stenosis of the right extracranial carotid arteries. LEFT: Duplex scan does not suggest hemodynamically significant stenosis of the left extracranial carotid arteries.
[2017-12-30] MEDS: Ferric Sodium Gluconat Complex 62.5 mg/5 ml Vial IVPB SCH (17:23)
[2017-12-30 17:42] LABS: EOSINOPHIL 1 % (0-4); LYMPHOCYTE 43 % (20-40); MONOCYTE 4 % (0-10); NEUTROPHIL 52 % (50-75); NUCLEATED RED BLOOD CELL 1 % (0-0); TOTAL CELLS COUNTED 100
[2017-12-30 17:43] LABS: ANISOCYTOSIS SLIGHT; HYPOCHROMIC SLIGHT; MICROCYTOSIS SLIGHT; POIKILOCYTOSIS SLIGHT
[2017-12-30 17:44] LABS: BURR CELLS SLIGHT; PLATELET ESTIMATE NORMAL (NORMAL)
[2017-12-31 02:21] LABS: MCH 21.3 pg (27.0-33.0); MCV 69.4 fL (80.0-100.0)
[2017-12-31] MEDS: Sodium Chloride 0.9% 1,000 ML IV SCH ×3 (03:37→17:48)
[2017-12-31 05:49] LABS: TB ANTIGEN MINUS NIL 0.07 IU/mL
[2017-12-31 06:12] LABS: BASO % 0.3 % (0.0-2.0); EOS # 0.2 K/uL (0.0-0.7); EOS % 3.3 % (0.0-4.0); HEMOGLOBIN 9.6 g/dL (12.0-18.0); LYMPH # 2.1 K/uL (1.0-4.3); MEAN CELL VOLUME 68.4 fL (80.0-94.0); MEAN CORPUSCULAR HEMOGLOBIN 21.4 pg (27.0-31.0); MEAN CORPUSCULAR HGB CONC 31.2 g/dL (33.0-37.0); MEAN PLATELET VOLUME 8.6 fL (7.2-11.7); MONO # 0.5 K/uL (0.0-0.8); MONO % 8.5 % (0.0-10.0); NEUT % 51.9 % (50.0-75.0); NRBC % 0.1 % (0.0-2.0); RBC 4.47 Mil/uL (4.40-5.90); RED CELL DISTRIBUTION WIDTH 17.3 % (11.5-14.5); WHITE BLOOD COUNT 5.9 K/uL (4.8-10.8)
[2017-12-31 06:27] LABS: ALB/GLOB RATIO 0.9 (1.0-2.1); ALBUMIN 3.3 g/dL (3.5-5.0); ALT/SGPT 29 U/L (21-72); AST/SGOT 28 U/L (17-59); BLOOD UREA NITROGEN 8 mg/dL (9-20); CALCIUM 8.3 mg/dl (8.6-10.4); GFR AFRICAN-AMERICAN > 60; GFR NON-AFRICAN AMERICAN > 60
[2017-12-31] MEDS: Pantoprazole 40 mg EC Tab PO SCH (09:57)
[2017-12-31] MEDS: Ferric Sodium Gluconat Complex 62.5 mg/5 ml Vial IVPB SCH (09:57)
[2017-12-31] MEDS: Azithromycin 500 MG in Sodium Chloride 0.9% 250 ML IVPB SCH ×2 (09:57→10:09)
[2017-12-31] MEDS: Saccharomyces Boulardi 250 mg Cap PO SCH ×2 (09:57→17:48)
--- NOTE | 2017-12-31 12:01 | CARD ---
APPROVED REPORT EXAM: Two-dimensional and M-mode echocardiogram with Doppler and color Doppler. Other Information Quality : GoodRhythm : INDICATION Abnormal EKG/Arrhythmia Syncope 2D DIMENSIONS IVSd1.2 (0.7-1.1cm)Aortic Root (2D)4.0 (2.0-3.7cm) LVDd4.7 (3.9-5.9cm)PWd1.3 (0.7-1.1cm) LVDs3.3 (2.5-4.0cm)FS (%) 29.9 % LVEF (%)57.0 (>50%) M-Mode DIMENSIONS Left Atrium (MM)3.65 (2.5-4.0cm)Aortic Root4.17 (2.2-3.7cm) Aortic Cusp Exc.2.14 (1.5-2.0cm) Mitral Valve MV E Rmicehli64.0cm/sMV A Wqblxfna66.5cm/sE/A ratio1.2 TDI E/Lateral E'0.0E/Medial E'0.0 Tricuspid Valve TR Peak Neqzwxaf990hn/sTR Peak Gr.[id number] LEFT VENTRICLE The left ventricle is normal size. There is mild concentric left ventricular hypertrophy. The left ventricular function is normal. The left ventricular ejection fraction is within the normal range. There is normal LV segmental wall motion. The left ventricular diastolic function is normal. No left ventricle thrombus noted on this study. There is no ventricular septal defect visualized. There is no left ventricular aneurysm. There is no mass noted in the left ventricle. RIGHT VENTRICLE The right ventricle is normal size. There is normal right ventricular wall thickness. The right ventricular systolic function is normal. ATRIA The left atrium size is normal. The right atrium size is normal. The interatrial septum is intact with no evidence for an atrial septal defect. AORTIC VALVE The aortic valve is normal in structure. No aortic regurgitation is present. There is no aortic valvular stenosis. There is no aortic valvular vegetation. MITRAL VALVE The mitral valve is normal in structure. There is no mitral valve stenosis. There is no mitral valve regurgitation noted. TRICUSPID VALVE The tricuspid valve is normal in structure. There is no tricuspid valve regurgitation noted. PULMONIC VALVE The pulmonary valve is normal in structure. There is no pulmonic valvular regurgitation. GREAT VESSELS The aortic root is normal in size. The ascending aorta is normal in size. The pulmonary artery is normal. The IVC is normal in size and collapses >50% with inspiration. PERICARDIAL EFFUSION There is no pericardial effusion. <Conclusion> There is mild concentric left ventricular hypertrophy. The left ventricular function is normal. The left ventricular ejection fraction is within the normal range. LVEF IS 60%.
[2017-12-31 13:12] LABS: HEMOGLOBIN A 97.2 Percent (>96.0); HEMOGLOBIN A2 1.8 Percent (1.8-3.5)
[2017-12-31] MEDS ORDERED: Pneumococcal 23-Valent Vaccine IM ONE (14:00)
--- NOTE | 2017-12-31 17:14 | CP.PCM.PN ---
<Krish Lee - Last Filed: 12/31/17 16:57> Subjective - Date & Time of Evaluation Date of Evaluation: 12/31/17 Time of Evaluation: 16:57 - Subjective Subjective: PGY-[address] Delmy Siddiuqi. No acute events noted overnight. Patient states his symptoms have vastly improved. He stated he had very little blood with cough today compared with yesterday. His breathing has improved. He denies all pain. Objective - Vital Signs/Intake and Output Vital Signs (last 24 hours): Temp Pulse Resp BP Pulse Ox 98 F 83 18 127/81 96 12/31/17 15:54 12/31/17 16:00 12/31/17 15:54 12/31/17 15:54 12/31/17 15:54 Intake and Output: 12/31/17 12/31/17 06:59 18:59 Intake Total 800 340 Balance 800 340 - Medications Medications: Current Medications Acetaminophen (Tylenol 325mg Tab) 650 mg PO Q6 PRN PRN Reason: Fever >100.4 F Azithromycin 500 mg/ Sodium (Chloride) 250 mls @ 166.667 mls/hr IVPB DAILY JOHN PRN Reason: Protocol Last Admin: 12/31/17 10:09 Dose: 166.667 mls/hr Ceftriaxone Sodium 1 gm/ (Sodium Chloride) 100 mls @ 100 mls/hr IVPB Q12H JOHN PRN Reason: Protocol Last Admin: 12/31/17 07:44 Dose: 100 mls/hr Sodium Chloride (Sodium Chloride 0.9%) 1,000 mls @ 100 mls/hr IV .Q10H [facility] Last Admin: 12/31/17 07:45 Dose: Not Given Pantoprazole Sodium (Protonix Ec Tab) 40 mg PO DAILY JOHN Last Admin: 12/31/17 09:57 Dose: 40 mg Saccharomyces Boulardii (Florastor) 250 mg PO BID JOHN Last Admin: 12/31/17 09:57 Dose: 250 mg - Labs Labs: 12/31/17 06:07 12/31/17 06:07 - Additional Findings Additional findings: - Constitutional Appears: Non-toxic, No Acute Distress - Head Exam Head Exam: ATRAUMATIC, NORMAL INSPECTION, NORMOCEPHALIC - Eye Exam Eye Exam: EOMI, Normal appearance, PERRL Pupil Exam: NORMAL ACCOMODATION - ENT Exam ENT Exam: Mucous Membranes Moist - Neck Exam Neck Exam: Full ROM - Respiratory Exam Respiratory Exam: crackles left lower lobe (improved). absent: Chest Wall Tenderness, Clear to Ausculation Bilateral, Prolonged Expiratory Phase, Wheezes , Stridor - Cardiovascular Exam Cardiovascular Exam: +S1, +S2 - GI/Abdominal Exam GI & Abdominal Exam: Soft, Normal Bowel Sounds. absent: Guarding, Tenderness - Extremities Exam Extremities Exam: Full ROM. absent: Pedal Edema - Back Exam Back Exam: Full ROM, NORMAL INSPECTION - Neurological Exam Neurological Exam: Alert, Awake, Oriented x3. absent: Motor Sensory Deficit Additional comments: - Psychiatric Exam Psychiatric exam: Normal Affect, Normal Mood - Skin Skin Exam: Dry, Intact, Normal Color, Warm Assessment and Plan (1) Hemoptysis Status: Acute (2) Syncope Status: Acute (3) Prophylactic measure Status: Acute - Assessment and Plan (Free Text) Assessment: 1) Hemoptysis Pneumonia Assessment and Plan: * Likely secondary to community acquired pneumonia, will need to rule out tuberculosis * No leukocytosis, afebrile, anemia secondary to hemoptysis - monitor Hgb * Airborne respiratory isolation as precaution until TB is ruled out * Encourage incentive spirometry Q2H * Pulmonology consult, Dr Salazar. Does patient need a bronchoscopy? * Dr Salazar was contacted 3 times with no response. Dr Morrissey, school lunch monitor, evaluated the patient and stated a bronchoscopy wasn't necessary and that the hemopthysis is 2/2 to pneumonia - which is resolving. Labs/Diagnostics: * UA: NORMAL, Urine Culture negative, * procalcitonin less than 0.05 * Legionella Ag urine, rapid Influenza, mycoplasma pneumoniae IgM, strep pneumoniae Ag, monospot - ALL NEGATIVE * Blood Cx NEGATIVE up to date * Sputum Culture- No group A species identified * HIV NEGATIVE * Quantiferon TB Gold NEGATIVE * AFB stain NEGATIVE for acid-fast bacilii. AFB culture pending. * F/U PPD Imaging: * CXR 12/28/17: Vague patchy opacity seen in left lung base could represent atelectasis versus developing infiltrate. * CT Chest w/ contrast 12/28/17: Pneumonia appreciated in left lower lung mahajan ; 6 cm dense consolidation, no apparent pulmonary embolism; mild cardiomegaly. Refer to complete report. Meds: * Azithromycin 500mg IVPB daily (Started 12/29/17) * Ceftriaxone 1g IVPB Q12H (Started 12/29/17) * Tylenol 650mg PO Q6H PRN for temp > 100.4 * Florastor 250mg PO BID (Started 12/29) * Will not administer pneumonia vaccine now since patient is currently being treated for pneumonia. Status: Acute Priority: High (2) Syncope Assessment and Plan: * Syncopal episode 2 days prior to admission likely secondary to weakness and dehydration from respiratory infection * Labs/Diagnostics: Lipid Panel: HDL low, Rest of panel relatively within normal limits, TSH/Free T4 WNL, Troponin 1 all within normal limits Imaging: * Head CT w/o contrast: Negative for acute ischemic or hemorrhagic changes * CANCELLED Brain MRI w/o contrast at this time in light of largely negative neuro clinical findings. Stable Head CT. Patient is neurologically intact. Not suspecting stroke. * F/U ECHO official report * Carotid Dopplers does not suggest hemodynamically significant stenosis of right or left extracranial carotid arteries Meds: * NS IV 100cc/hr Status: Acute Priority: High (3) Anemia Assessment and Plan: * Iron deficiency anemia 2/2? * Hgb 11.1 -> 9.8 -> 9.8 * Iron LOW 18, TIBC NORMAL, % saturation LOW, Ferritin NORMAL * Vitamin B12 and Folate NORMAL * Haptoglobin ELEVATED, LDH NORMAL, Direct BILI NORMAL * Reticulocyte Index LOW -> Hypoproliferation. This is expected. * Suspecting secondary to hemotypsis however based on iron studies there seems to be a iron deficiency component to the anemia * Ferrlicet 125mg IVP x2 bags - then transition to ferrous sulfate 325mg PO QD (4) Prophylactic measure Assessment and Plan: * Heart healthy diet * Protonix 40mg PO QDaily * Anticoagulation contraindicated secondary to hemoptysis * SCDs Status: Acute Priority: Low Discharge: Will need to discharge patient on po abx (for PNA) and feosol (for iron deficiency anemia). <Michael Siddiqui - Last Filed: 12/31/17 19:53> Objective - Vital Signs/Intake and Output Vital Signs (last 24 hours): Temp Pulse Resp BP Pulse Ox 98 F 83 18 127/81 96 12/31/17 15:54 12/31/17 16:00 12/31/17 15:54 12/31/17 15:54 12/31/17 15:54 Intake and Output: 12/31/17 01/01/18 18:59 06:59 Intake Total 340 Balance 340 - Medications Medications: Current Medications Acetaminophen (Tylenol 325mg Tab) 650 mg PO Q6 PRN PRN Reason: Fever >100.4 F Albuterol/Ipratropium (Duoneb 3 Mg/0.5 Mg (3 Ml) Ud) 3 ml INH RQ4 JOHN Ferrous Sulfate (Feosol) 325 mg PO DAILY [facility] Azithromycin 500 mg/ Sodium (Chloride) 250 mls @ 166.667 mls/hr IVPB DAILY JOHN PRN Reason: Protocol Last Admin: 12/31/17 10:09 Dose: 166.667 mls/hr Ceftriaxone Sodium 1 gm/ (Sodium Chloride) 100 mls @ 100 mls/hr IVPB Q12H JOHN PRN Reason: Protocol Last Admin: 12/31/17 19:49 Dose: 100 mls/hr Sodium Chloride (Sodium Chloride 0.9%) 1,000 mls @ 100 mls/hr IV .Q10H [facility] Last Admin: 12/31/17 17:48 Dose: 100 mls/hr Pantoprazole Sodium (Protonix Ec Tab) 40 mg PO DAILY [facility] Last Admin: 12/31/17 09:57 Dose: 40 mg Saccharomyces Boulardii (Florastor) 250 mg PO BID [facility] Last Admin: 12/31/17 17:48 Dose: 250 mg - Labs Labs: 12/31/17 06:07 12/31/17 06:07 Attending/Attestation - Attestation I have personally seen and examined this patient.: Yes I have fully participated in the care of the patient.: Yes I have reviewed all pertinent clinical information, including history, physical exam and plan: Yes Notes (Text): 12/31/17 19:51 Patient was seen and examined with Nurse Felisa at 3:45 who helped to translate Latvian. Exam, assessment and plan were gone over with the resident. If patient continues to have no more hemoptysis (he had sputum production today but there was NO blood) and remains fever free we will discharge him on 01/01/18. Dr. Morrissey's help is greatly appreciated. Michael Siddiqui D.O.
--- NOTE | 2017-12-31 18:33 | CP.PCM.CON ---
History of Present Illness - History of Present Illness History of Present Illness: admitted with pneumonia LLL, now has improved on Rx, sputum AFB neg x 1 Review of Systems - Review of Systems All systems: reviewed and no additional remarkable complaints except - Respiratory Respiratory: Cough, Hemoptysis, Chest Congestion Past Patient History - Infectious Disease Hx of Infectious Diseases: None - Past Social History Smoking Status: Never Smoked - MUSCULOSKELETAL/RHEUMATOLOGICAL Hx Falls: No - PSYCHIATRIC Hx Substance Use: No - SURGICAL HISTORY Hx Surgeries: Yes Meds Allergies/Adverse Reactions: Allergies Allergy/AdvReac Type Severity Reaction Status Date / Time NSAIDS (Non-Steroidal Allergy Verified 12/28/17 20:54 Anti-Inflamma - Medications Medications: Current Medications Acetaminophen (Tylenol 325mg Tab) 650 mg PO Q6 PRN PRN Reason: Fever >100.4 F Ferrous Sulfate (Feosol) 325 mg PO DAILY [facility] Azithromycin 500 mg/ Sodium (Chloride) 250 mls @ 166.667 mls/hr IVPB DAILY JOHN PRN Reason: Protocol Last Admin: 12/31/17 10:09 Dose: 166.667 mls/hr Ceftriaxone Sodium 1 gm/ (Sodium Chloride) 100 mls @ 100 mls/hr IVPB Q12H JOHN PRN Reason: Protocol Last Admin: 12/31/17 07:44 Dose: 100 mls/hr Sodium Chloride (Sodium Chloride 0.9%) 1,000 mls @ 100 mls/hr IV .Q10H [facility] Last Admin: 12/31/17 17:48 Dose: 100 mls/hr Pantoprazole Sodium (Protonix Ec Tab) 40 mg PO DAILY [facility] Last Admin: 12/31/17 09:57 Dose: 40 mg Saccharomyces Boulardii (Florastor) 250 mg PO BID [facility] Last Admin: 12/31/17 17:48 Dose: 250 mg Physical Exam - Constitutional Appears: No Acute Distress - Head Exam Head Exam: ATRAUMATIC, NORMOCEPHALIC - Eye Exam Eye Exam: Normal appearance Pupil Exam: NORMAL ACCOMODATION - ENT Exam ENT Exam: Mucous Membranes Moist - Neck Exam Neck exam: Positive for: Normal Inspection - Respiratory Exam Respiratory Exam: Decreased Breath Sounds, Rhonchi - Cardiovascular Exam Cardiovascular Exam: REGULAR RHYTHM, +S1, +S2 - GI/Abdominal Exam GI & Abdominal Exam: Normal Bowel Sounds - Rectal Exam Rectal Exam: Deferred - Neurological Exam Neurological exam: Alert, Oriented x3 - Psychiatric Exam Psychiatric exam: Normal Affect, Normal Mood Results - Vital Signs Recent Vital Signs: Last Vital Signs Temp 98 F 12/31/17 15:54 Pulse 83 12/31/17 16:00 Resp 18 12/31/17 15:54 BP 127/81 12/31/17 15:54 Pulse Ox 96 12/31/17 15:54 - Labs Result Diagrams: 12/31/17 06:07 12/31/17 06:07 Labs: Laboratory Results - last 24 hr 12/29/17 12/30/17 12/31/17 10:40 06:54 06:07 WBC 5.9 RBC 4.47 Hgb 9.6 L Hct 30.6 L MCV 68.4 L MCH 21.4 L MCHC 31.2 L RDW 17.3 H Plt Count 230 MPV 8.6 Neut % (Auto) 51.9 Lymph % (Auto) 36.0 Rice % (Auto) 8.5 Eos % (Auto) 3.3 Baso % (Auto) 0.3 Neut # (Auto) 3.0 Lymph # (Auto) 2.1 Rice # (Auto) 0.5 Eos # (Auto) 0.2 Baso # (Auto) 0.0 Hemoglobin A 97.2 Hemoglobin A2 1.8 Hemoglobin C 0.0 Hemoglobin F () <1.0 Hemoglobin S 0.0 Variant Hemoglobin 0.0 Hemoglobinopathy Red Blood Count 4.61 Hemoglobinopathy Hct 32.0 L Hemoglobinopathy Hgb 9.8 L Hemoglobinopathy MCV 69.4 L Hemoglobinopathy MCH 21.3 L Hemoglobinopathy RDW 17.1 H Hemoglobinopathy Interp See note Sodium Potassium Chloride Carbon Dioxide Anion Gap BUN Creatinine Est GFR ( Amer) Est GFR (Non-Af Amer) Random Glucose Calcium Total Bilirubin AST ALT Alkaline Phosphatase Total Protein Albumin Globulin Albumin/Globulin Ratio TB Test (QFT) Nil 0.05 TB Test Mitogen - Nil 9.24 TB Test TB - Nil 0.07 TB Test (QFT) Negative 12/31/17 06:07 WBC RBC Hgb Hct MCV MCH MCHC RDW Plt Count MPV Neut % (Auto) Lymph % (Auto) Rice % (Auto) Eos % (Auto) Baso % (Auto) Neut # (Auto) Lymph # (Auto) Rice # (Auto) Eos # (Auto) Baso # (Auto) Hemoglobin A Hemoglobin A2 Hemoglobin C Hemoglobin F () Hemoglobin S Variant Hemoglobin Hemoglobinopathy Red Blood Count Hemoglobinopathy Hct Hemoglobinopathy Hgb Hemoglobinopathy MCV Hemoglobinopathy MCH Hemoglobinopathy RDW Hemoglobinopathy Interp Sodium 142 Potassium 3.8 Chloride 104 Carbon Dioxide 27 Anion Gap 15 BUN 8 L Creatinine 0.8 Est GFR ( Amer) > 60 Est GFR (Non-Af Amer) > 60 Random Glucose 88 Calcium 8.3 L Total Bilirubin 0.4 AST 28 ALT 29 Alkaline Phosphatase 57 Total Protein 6.8 Albumin 3.3 L Globulin 3.6 Albumin/Globulin Ratio 0.9 L TB Test (QFT) Nil TB Test Mitogen - Nil TB Test TB - Nil TB Test (QFT) Assessment & Plan (1) Pneumonia Status: Acute Comment: community aquired, in non smoker, non asthmatic host. add neb Rx
[2018-01-01] MEDS: Albuterol-Ipratrop 3 mg / 0.5 (3 ml) UD INH SCH ×5 (00:34→16:17)
[2018-01-01 06:55] LABS: BASO % 0.5 % (0.0-2.0); EOS # 0.2 K/uL (0.0-0.7); EOS % 2.9 % (0.0-4.0); LYMPH # 2.7 K/uL (1.0-4.3); LYMPH % 38.6 % (20.0-40.0); MEAN CELL VOLUME 67.9 fL (80.0-94.0); MEAN CORPUSCULAR HEMOGLOBIN 21.1 pg (27.0-31.0); MEAN CORPUSCULAR HGB CONC 31.1 g/dL (33.0-37.0); MEAN PLATELET VOLUME 8.2 fL (7.2-11.7); MONO # 0.5 K/uL (0.0-0.8); MONO % 7.1 % (0.0-10.0); NEUT # 3.6 K/uL (1.8-7.0); NEUT % 50.9 % (50.0-75.0); RBC 4.71 Mil/uL (4.40-5.90); RED CELL DISTRIBUTION WIDTH 16.9 % (11.5-14.5)
[2018-01-01 07:54] VITALS: O2SAT 98
[2018-01-01] MEDS: Saccharomyces Boulardi 250 mg Cap PO SCH (09:11)
[2018-01-01] MEDS: Pantoprazole 40 mg EC Tab PO SCH (09:11)
[2018-01-01 09:14] LABS: ALB/GLOB RATIO 0.9 (1.0-2.1); ALBUMIN 3.6 g/dL (3.5-5.0); ALT/SGPT 28 U/L (21-72); AST/SGOT 40 U/L (17-59); BLOOD UREA NITROGEN 8 mg/dL (9-20); CALCIUM 8.8 mg/dl (8.6-10.4); GFR AFRICAN-AMERICAN > 60; GFR NON-AFRICAN AMERICAN > 60
--- NOTE | 2018-01-01 09:47 | CP.PCM.DIS ---
<Krish Lee - Last Filed: 01/01/18 10:18> Provider - Provider Date of Admission: 12/28/17 18:32 Attending physician: Michael Siddiqui MD Primary care physician: PMD: none Consults: Pulmonology: Dr Salazar Time Spent in preparation of Discharge (in minutes): 33 Diagnosis - Discharge Diagnosis (1) Hemoptysis Status: Resolved Priority: High (2) Pneumonia Status: Acute Priority: High (3) Syncope Status: Resolved Priority: Low (4) Positive occult stool blood test Status: Acute Priority: High (5) Prophylactic measure Status: Acute Priority: Low Hospital Course - Lab Results Lab Results: Micro Results 12/28/17 16:00 Blood Blood Culture - Preliminary NO GROWTH AFTER 3 DAYS 12/28/17 16:45 Blood Blood Culture - Preliminary NO GROWTH AFTER 3 DAYS 12/29/17 06:55 Other: Please Indicate Mycobacterial Culture - Preliminary 12/28/17 20:19 Throat Group A Strep Throat Culture - Final NO BETA STREP GROUP A ISOLATED. 12/28/17 15:42 Urine Urine Culture - Final No Growth (<1,000 CFU/ML) Most Recent Lab Values WBC 7.0 K/uL (4.8-10.8) 01/01/18 06:47 RBC 4.71 Mil/uL (4.40-5.90) 01/01/18 06:47 Hgb 10.0 g/dL (12.0-18.0) L 01/01/18 06:47 Hct 32.0 % (35.0-51.0) L 01/01/18 06:47 MCV 67.9 fL (80.0-94.0) L 01/01/18 06:47 MCH 21.1 pg (27.0-31.0) L 01/01/18 06:47 MCHC 31.1 g/dL (33.0-37.0) L 01/01/18 06:47 RDW 16.9 % (11.5-14.5) H 01/01/18 06:47 Plt Count 274 K/uL (130-400) 01/01/18 06:47 MPV 8.2 fL (7.2-11.7) 01/01/18 06:47 Neut % (Auto) 50.9 % (50.0-75.0) 01/01/18 06:47 Lymph % (Auto) 38.6 % (20.0-40.0) 01/01/18 06:47 [place] % (Auto) 7.1 % (0.0-10.0) 01/01/18 06:47 Eos % (Auto) 2.9 % (0.0-4.0) 01/01/18 06:47 Baso % (Auto) 0.5 % (0.0-2.0) 01/01/18 06:47 Neut # (Auto) 3.6 K/uL (1.8-7.0) 01/01/18 06:47 Lymph # (Auto) 2.7 K/uL (1.0-4.3) 01/01/18 06:47 [place] # (Auto) 0.5 K/uL (0.0-0.8) 01/01/18 06:47 Eos # (Auto) 0.2 K/uL (0.0-0.7) 01/01/18 06:47 Baso # (Auto) 0.0 K/uL (0.0-0.2) 01/01/18 06:47 Neutrophils % (Manual) 52 % (50-75) 12/30/17 06:54 Lymphocytes % (Manual) 43 % (20-40) H 12/30/17 06:54 Monocytes % (Manual) 4 % (0-10) 12/30/17 06:54 Eosinophils % (Manual) 1 % (0-4) 12/30/17 06:54 Nucleated RBC % 1 % (0-0) H 12/30/17 06:54 Differential Comment 12/28/17 15:50 Platelet Estimate Normal (NORMAL) 12/30/17 06:54 Hypochromasia (manual) Slight 12/30/17 06:54 Poikilocytosis (manual Slight 12/30/17 06:54 Anisocytosis (manual) Slight 12/30/17 06:54 Microcytosis (manual) Slight 12/30/17 06:54 Jennifer Cells Slight 12/30/17 06:54 Retic Count 1.2 % (0.5-1.5) 12/30/17 13:18 Hemoglobin A 97.2 Percent (>96.0) 12/30/17 06:54 Hemoglobin A2 1.8 Percent (1.8-3.5) 12/30/17 06:54 Hemoglobin C 0.0 Percent (0.0-0.0) 12/30/17 06:54 Hemoglobin F () <1.0 Percent (<2.0) 12/30/17 06:54 Hemoglobin S 0.0 Percent (0.0-0.0) 12/30/17 06:54 Variant Hemoglobin 0.0 Percent (0.0-0.0) 12/30/17 06:54 Hemoglobinopathy Red Blood Count 4.61 Mill/mcL (4.20-5.80) 12/30/17 06:54 Hemoglobinopathy Hct 32.0 % (38.5-50.0) L 12/30/17 06:54 Hemoglobinopathy Hgb 9.8 g/dL (13.2-17.1) L 12/30/17 06:54 Hemoglobinopathy MCV 69.4 fL (80.0-100.0) L 12/30/17 06:54 Hemoglobinopathy MCH 21.3 pg (27.0-33.0) L 12/30/17 06:54 Hemoglobinopathy RDW 17.1 % (11.0-15.0) H 12/30/17 06:54 Hemoglobinopathy Interp See note 12/30/17 06:54 Haptoglobin 243.1 mg/dL (30.0-200.0) H 12/30/17 13:14 D-Dimer, Quantitative < 200 ng/mlDDU (0-243) 12/28/17 15:50 pO2 45 mm/Hg (30-55) 12/28/17 19:00 VBG pH 7.41 (7.32-7.43) 12/28/17 19:00 VBG pCO2 45 mmHg (40-60) 12/28/17 19:00 VBG HCO3 27.0 mmol/L 12/28/17 19:00 VBG Total CO2 29.9 mmol/L (22-28) H 12/28/17 19:00 VBG O2 Sat (Calc) 81.7 % (40-65) H 12/28/17 19:00 VBG Base Excess 3.2 mmol/L (0.0-2.0) H 12/28/17 19:00 VBG Potassium 3.4 mmol/L (3.6-5.2) L 12/28/17 19:00 Sodium 141.0 mmol/l (132-148) 12/28/17 19:00 Chloride 107.0 mmol/L (98-107) 12/28/17 19:00 Glucose 90 mg/dl (75-110) 12/28/17 19:00 Lactate 0.8 mmol/L (0.7-2.1) 12/28/17 19:00 Sodium 140 mmol/L (132-148) 01/01/18 06:47 Potassium 3.5 mmol/L (3.6-5.2) L 01/01/18 06:47 Chloride 107 mmol/L (98-107) 01/01/18 06:47 Carbon Dioxide 19 mmol/L (22-30) L 01/01/18 06:47 Anion Gap 18 (10-20) 01/01/18 06:47 BUN 8 mg/dL (9-20) L 01/01/18 06:47 Creatinine 0.8 mg/dL (0.8-1.5) 01/01/18 06:47 Est GFR ( Amer) > 60 01/01/18 06:47 Est GFR (Non-Af Amer) > 60 01/01/18 06:47 Random Glucose 81 mg/dL (75-110) 01/01/18 06:47 Calcium 8.8 mg/dl (8.6-10.4) 01/01/18 06:47 Phosphorus 3.5 mg/dL (2.5-4.5) 12/30/17 06:54 Magnesium 2.2 mg/dL (1.6-2.3) 12/30/17 06:54 Iron 18 ug/dL (49-181) L 12/29/17 20:50 TIBC 312 ug/dL (250-450) 12/30/17 06:54 % Saturation 6 (20-55) L 12/30/17 06:54 Ferritin 18.7 ng/mL 12/30/17 06:54 Total Bilirubin 0.4 mg/dL (0.2-1.3) 01/01/18 06:47 Direct Bilirubin 0.4 mg/dL (0.0-0.4) 12/30/17 13:14 AST 40 U/L (17-59) 04/04/18 06:47 ALT 28 U/L (21-72) 01/01/18 06:47 Alkaline Phosphatase 61 U/L (38-126) 01/01/18 06:47 Lactate Dehydrogenase 541 U/L (313-618) 12/30/17 13:14 Total Creatine Kinase 347 U/L (55-170) H 12/28/17 20:43 CK-MB (Mass) 1.01 ng/mL (0.0-3.38) 12/28/17 20:43 Troponin I < 0.0120 ng/mL (0.00-0.120) 12/28/17 20:43 Total Protein 7.4 g/dL (6.3-8.3) 01/01/18 06:47 Albumin 3.6 g/dL (3.5-5.0) 01/01/18 06:47 Globulin 3.8 gm/dL (2.2-3.9) 01/01/18 06:47 Albumin/Globulin Ratio 0.9 (1.0-2.1) L 01/01/18 06:47 Triglycerides 87 mg/dL (0-149) 12/29/17 07:27 Cholesterol 100 mg/dL (0-199) 12/29/17 07:27 LDL Cholesterol Direct 54 mg/dL (0-129) 12/29/17 07:27 HDL Cholesterol 22 mg/dL (30-70) L 12/29/17 07:27 Vitamin B12 260 pg/mL (239-931) 12/30/17 06:54 Folate 13.1 ng/mL 12/30/17 06:54 Procalcitonin < 0.05 NG/ML (0.19-0.49) L 12/28/17 20:43 Free T4 1.43 ng/dL (0.78-2.19) 12/29/17 07:27 TSH 3rd Generation 0.87 mIU/L (0.46-4.68) 12/29/17 07:27 Venous Blood Potassium 3.4 mmol/L (3.6-5.2) L 12/28/17 19:00 Urine Color Straw (YELLOW) 12/28/17 16:26 Urine Clarity Clear (Clear) 12/28/17 16:26 Urine pH 7.0 (5.0-8.0) 12/28/17 16:26 Ur Specific [place] 1.004 (1.003-1.030) 12/28/17 16:26 Urine Protein Negative mg/dL (NEGATIVE) 12/28/17 16:26 Urine Glucose (UA) Normal mg/dL (Normal) 12/28/17 16:26 Urine Ketones Negative mg/dL (NEGATIVE) 12/28/17 16:26 Urine Blood Negative (NEGATIVE) 12/28/17 16:26 Urine Nitrate Negative (NEGATIVE) 12/28/17 16:26 Urine Bilirubin Negative (NEGATIVE) 12/28/17 16:26 Urine Urobilinogen Normal mg/dL (0.2-1.0) 12/28/17 16:26 Ur Leukocyte Esterase Neg Jordan/uL (Negative) 12/28/17 16:26 Urine WBC (Auto) < 1 /hpf (0-5) 12/28/17 16:26 Urine RBC (Auto) < 1 /hpf (0-3) 12/28/17 16:26 Stool Occult Blood Positive (NEGATIVE) H 12/31/17 22:09 HIV 1&2 Antibody Screen Negative (NEGATIVE) 12/29/17 07:27 Infectious [place] Assay Negative (NEGATIVE) 12/30/17 13:14 Influenza Typ A,B (EIA) Negative for flu a/b (NEGATIVE) 12/28/17 18:33 Ur L.pneumophila Ag Negative (NEGATIVE) 12/28/17 20:38 Mycoplasma pneumon IgM Negative (NEGATIVE) 12/29/17 07:27 Grp A Beta Strep Ag Negative (NEGATIVE) 12/28/17 20:19 TB Test (QFT) Nil 0.05 IU/mL 12/29/17 10:40 TB Test Mitogen - Nil 9.24 IU/mL 12/29/17 10:40 TB Test TB - Nil 0.07 IU/mL 12/29/17 10:40 TB Test (QFT) Negative (Negative) 12/29/17 10:40 - Hospital Course Hospital Course: CC: "I'm coughing up blood" HPI: Mr Plasencia is a 42 year old male with no significant past medical history who presents to [facility] because of fever, chills and hemoptysis which began 2 days ago. He says he was at work 2 days ago when he felt chills and shortly thereafter he fainted. He does not remember hitting his head. His co- workers say he was out for about 4 minutes. He came to then went home and felt fevers and began to have episodes of coughing up blood (with clots). He also endorses pleuritic chest pain (mid-sternal) worse with inspiration, loss of appetite, night sweats, malaise, all which have also occurred the past 2 days. All of these symptoms became progressively worse thus he came to the ER. He did not take any medications. He denies sputum production, emesis, weight loss, dysuria, alcohol use, tobacco use. 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 He came from [facility] 17 years ago and denies a hx of tuberculosis, or ever receiving shots for TB. He denies sick contacts, recent travel. PMD: none PMHx: none PSHx: none Allergies: NKA Home Meds: none FamHx: denies SocialHx: Denies tobacco use, alcohol use, illicit drug use. Lives with aunt at home. Works at a [employer] plant. From [facility], arrived 17 years ago and has not returned. HOSPITAL COURSE: 42 year old male presented to hospital with hemoptysis. Patient's chest xray showed vague patchy opacity of left lung base. A CT was ordered which showed left lower lobe pneumonia and minor localized atelectasis and infiltrate of left lingular region as well. Patient was tested for sputum culture, PPD and quantiferon gold, AFB stain, HIV, monospot, legionella antigen , strep pneumonia, rapid influenza, mycoplasma pneumoniae IGM, antigen all of which came back negative. Patient was diagnosed with community acquired pneumonia and iron deficiency anemia (2/2 to hemoptysis and a GI bleed as his stool occult was positive). Patient was started on Azithromycin 500 mg IVPB daily and ceftriaxone 1g IVPD q12H along with florastor 250mg PO BID. Pulmonology was consulted due to prolonged hemoptysis present through the first three days of admission, contact was made first through Dr. Salazar who failed to respond calls then through Dr. Morrissey who stated the continued hemoptysis was secondary to PNA and did not warrant a bronchoscopy. Patient's CBC showed microcytic anemia most likely due to iron deficiency secondary to hemoptysis but there seems to also be a GI bleed as patient also had a positive stool occult blood. Iron deficiency anemia was treated with ferrlicet 125mg IVP x2bags then transitioned to ferrous sulfate 325mg PO QD. His Hgb was stable and he was advised to follow-up in the clinic so he can get a referral to a GI for a possible colonoscopy in the future to evaluate the etiology of the positive stool occult. Patient had a syncopal episode 2 days prior to presentation. Syncope was most likely secondary to weakness and dehydration incurred by the infection. Nevertheless a syncope workup was done. Patient's head CT showed no acute intracranial hemorrhage. Patient's carotid duplex scan showed showed no evidence of significant stenosis bilaterally. An echo was ordered which showed mild concentric left ventricular hypertrophy with normal ejection fraction. Upon discharge, patient's hemoptysis had nearly completely resolved and lungs sounds improved dramatically. Patient was discharged on Doxycycline due to expense of PO medications. Patient was given instructions to return to clinic to schedule colonoscopy appointment as well as repeat chest xray in 6-8 weeks following completion of antibiotics. Please see the latest A/P for further details on management course: 1) Hemoptysis Pneumonia Assessment and Plan: * Likely secondary to community acquired pneumonia, will need to rule out tuberculosis * No leukocytosis, afebrile, anemia secondary to hemoptysis - monitor Hgb * Airborne respiratory isolation as precaution until TB is ruled out * Encourage incentive spirometry Q2H * Pulmonology consult, Dr Salazar. Does patient need a bronchoscopy? * Dr Salazar was contacted 3 times with no response. Dr Morrissey, supervisor picking crew, evaluated the patient and stated a bronchoscopy wasn't necessary and that the hemopthysis is 2/2 to pneumonia - which is resolving. Labs/Diagnostics: * UA: NORMAL, Urine Culture negative, * procalcitonin less than 0.05 * Legionella Ag urine, rapid Influenza, mycoplasma pneumoniae IgM, strep pneumoniae Ag, monospot - ALL NEGATIVE * Blood Cx NEGATIVE up to date * Sputum Culture- No group A species identified * HIV NEGATIVE * Quantiferon TB Gold NEGATIVE * AFB stain NEGATIVE for acid-fast bacilii. AFB culture pending. * F/U PPD Imaging: * CXR 12/28/17: Vague patchy opacity seen in left lung base could represent atelectasis versus developing infiltrate. * CT Chest w/ contrast 12/28/17: Pneumonia appreciated in left lower lung mahajan ; 6 cm dense consolidation, no apparent pulmonary embolism; mild cardiomegaly. Refer to complete report. Meds: * Azithromycin 500mg IVPB daily (Started 12/29/17) * Ceftriaxone 1g IVPB Q12H (Started 12/29/17) * Tylenol 650mg PO Q6H PRN for temp > 100.4 * Florastor 250mg PO BID (Started 12/29) * Will not administer pneumonia vaccine now since patient is currently being treated for pneumonia. Status: Acute Priority: High (2) Syncope Assessment and Plan: * Syncopal episode 2 days prior to admission likely secondary to weakness and dehydration from respiratory infection * Labs/Diagnostics: Lipid Panel: HDL low, Rest of panel relatively within normal limits, TSH/Free T4 WNL, Troponin 1 all within normal limits Imaging: * Head CT w/o contrast: Negative for acute ischemic or hemorrhagic changes * CANCELLED Brain MRI w/o contrast at this time in light of largely negative neuro clinical findings. Stable Head CT. Patient is neurologically intact. Not suspecting stroke. * F/U ECHO official report * Carotid Dopplers does not suggest hemodynamically significant stenosis of right or left extracranial carotid arteries Meds: * NS IV 100cc/hr Status: Acute Priority: High (3) Anemia Assessment and Plan: * Iron deficiency anemia 2/2? * Hgb 11.1 -> 9.8 -> 9.8 * Iron LOW 18, TIBC NORMAL, % saturation LOW, Ferritin NORMAL * Vitamin B12 and Folate NORMAL * Haptoglobin ELEVATED, LDH NORMAL, Direct BILI NORMAL * Reticulocyte Index LOW -> Hypoproliferation. This is expected. * Positive stool blood occult * Suspecting secondary to hemotypsis however based on iron studies there seems to be a iron deficiency component to the anemia * Ferrlicet 125mg IVP x2 bags - then transition to ferrous sulfate 325mg PO QD (4) Prophylactic measure Assessment and Plan: * Heart healthy diet * Protonix 40mg PO QDaily * Anticoagulation contraindicated secondary to hemoptysis * SCDs Status: Acute Priority: Low Discharge: Will need to discharge patient on po abx (for PNA) and feosol (for iron deficiency anemia). Discharge Exam - Head Exam Head Exam: ATRAUMATIC, NORMOCEPHALIC - Additional Findings Additional findings: - Constitutional Appears: Non-toxic, No Acute Distress - Head Exam Head Exam: ATRAUMATIC, NORMAL INSPECTION, NORMOCEPHALIC - Eye Exam Eye Exam: EOMI, Normal appearance, PERRL Pupil Exam: NORMAL ACCOMODATION - ENT Exam ENT Exam: Mucous Membranes Moist - Neck Exam Neck Exam: Full ROM - Respiratory Exam Respiratory Exam: crackles left lower lobe (improved). absent: Chest Wall Tenderness, Clear to Ausculation Bilateral, Prolonged Expiratory Phase, Wheezes , Stridor - Cardiovascular Exam Cardiovascular Exam: +S1, +S2 - GI/Abdominal Exam GI & Abdominal Exam: Soft, Normal Bowel Sounds. absent: Guarding, Tenderness - Extremities Exam Extremities Exam: Full ROM. absent: Pedal Edema - Back Exam Back Exam: Full ROM, NORMAL INSPECTION - Neurological Exam Neurological Exam: Alert, Awake, Oriented x3. absent: Motor Sensory Deficit Additional comments: - Psychiatric Exam Psychiatric exam: Normal Affect, Normal Mood - Skin Skin Exam: Dry, Intact, Normal Color, Warm Discharge Plan - Discharge Medications Prescriptions: Doxycycline Monohydrate 100 mg PO DAILY #30 tablet Ferrous Sulfate [Feosol] 325 mg PO DAILY #30 tab Lactobacillus Acidophilus [Bacid Acidophilus] 1 cap PO BID #60 cap - Follow Up Plan Condition: STABLE Disposition: HOME/ ROUTINE Instructions: Heart Healthy Diet, Pneumonia, Adult (DC), Coughing up Blood, Doxycycline, Ferrous Sulfate, Lactobacillus, Hypokalemia (DC) Additional Instructions: Patient is medically stable for discharge. Please follow the following instructions exactly as written: Take the following medications for your infection: 1. Doxycycline, 100mg tablets, take 2 tablets at 8AM and take 2 tablets at 8PM for the first 3 days. Starting on day 4, take 1 tablet at 8AM and take 1 tablet at 8PM until all tablets are finished. 2. Bacid, take 1 tablet at 10AM and take 1 tablet at 10PM until all tablets are finished (this will be a total of 30 days) Take the following medication for your low iron: 1. Feosol Sulfate 325mg, take 1 tablet with lunch every day Please establish care with our [facility] care clinic in the [facility]. It is important you establish care so you can get a referral to a GI specialist as you need a colonoscopy in the future (as there is microscopic blood in your stool). In addition, you will need a chest xray in 8 weeks to make sure the infection has resolved. [facility] If symptoms return promptly go to your nearest emergency department. Referrals: [facility] at [facility] [Outside] <Michael Siddiqui - Last Filed: 01/01/18 18:22> Provider - Provider Date of Admission: 12/28/17 18:32 Attending physician: Michael Siddiqui MD Time Spent in preparation of Discharge (in minutes): 40 Hospital Course - Lab Results Lab Results: Micro Results 12/30/17 12:39 Other: Please Indicate Mycobacterial Culture - Preliminary 12/28/17 16:00 Blood Blood Culture - Preliminary NO GROWTH AFTER 3 DAYS 12/28/17 16:45 Blood Blood Culture - Preliminary NO GROWTH AFTER 3 DAYS 12/29/17 06:55 Other: Please Indicate Mycobacterial Culture - Preliminary 12/28/17 20:19 Throat Group A Strep Throat Culture - Final NO BETA STREP GROUP A ISOLATED. 12/28/17 15:42 Urine Urine Culture - Final No Growth (<1,000 CFU/ML) Most Recent Lab Values WBC 7.0 K/uL (4.8-10.8) 01/01/18 06:47 RBC 4.71 Mil/uL (4.40-5.90) 01/01/18 06:47 Hgb 10.0 g/dL (12.0-18.0) L 01/01/18 06:47 Hct 32.0 % (35.0-51.0) L 01/01/18 06:47 MCV 67.9 fL (80.0-94.0) L 01/01/18 06:47 MCH 21.1 pg (27.0-31.0) L 01/01/18 06:47 MCHC 31.1 g/dL (33.0-37.0) L 01/01/18 06:47 RDW 16.9 % (11.5-14.5) H 01/01/18 06:47 Plt Count 274 K/uL (130-400) 01/01/18 06:47 MPV 8.2 fL (7.2-11.7) 01/01/18 06:47 Neut % (Auto) 50.9 % (50.0-75.0) 01/01/18 06:47 Lymph % (Auto) 38.6 % (20.0-40.0) 01/01/18 06:47 [place] % (Auto) 7.1 % (0.0-10.0) 01/01/18 06:47 Eos % (Auto) 2.9 % (0.0-4.0) 01/01/18 06:47 Baso % (Auto) 0.5 % (0.0-2.0) 01/01/18 06:47 Neut # (Auto) 3.6 K/uL (1.8-7.0) 01/01/18 06:47 Lymph # (Auto) 2.7 K/uL (1.0-4.3) 01/01/18 06:47 [place] # (Auto) 0.5 K/uL (0.0-0.8) 01/01/18 06:47 Eos # (Auto) 0.2 K/uL (0.0-0.7) 01/01/18 06:47 Baso # (Auto) 0.0 K/uL (0.0-0.2) 01/01/18 06:47 Neutrophils % (Manual) 52 % (50-75) 12/30/17 06:54 Lymphocytes % (Manual) 43 % (20-40) H 12/30/17 06:54 Monocytes % (Manual) 4 % (0-10) 12/30/17 06:54 Eosinophils % (Manual) 1 % (0-4) 12/30/17 06:54 Nucleated RBC % 1 % (0-0) H 12/30/17 06:54 Differential Comment 12/28/17 15:50 Platelet Estimate Normal (NORMAL) 12/30/17 06:54 Hypochromasia (manual) Slight 12/30/17 06:54 Poikilocytosis (manual Slight 12/30/17 06:54 Anisocytosis (manual) Slight 12/30/17 06:54 Microcytosis (manual) Slight 12/30/17 06:54 [place] Cells Slight 12/30/17 06:54 Retic Count 1.2 % (0.5-1.5) 12/30/17 13:18 Hemoglobin A 97.2 Percent (>96.0) 12/30/17 06:54 Hemoglobin A2 1.8 Percent (1.8-3.5) 12/30/17 06:54 Hemoglobin C 0.0 Percent (0.0-0.0) 12/30/17 06:54 Hemoglobin F () <1.0 Percent (<2.0) 12/30/17 06:54 Hemoglobin S 0.0 Percent (0.0-0.0) 12/30/17 06:54 Variant Hemoglobin 0.0 Percent (0.0-0.0) 12/30/17 06:54 Hemoglobinopathy Red Blood Count 4.61 Mill/mcL (4.20-5.80) 12/30/17 06:54 Hemoglobinopathy Hct 32.0 % (38.5-50.0) L 12/30/17 06:54 Hemoglobinopathy Hgb 9.8 g/dL (13.2-17.1) L 12/30/17 06:54 Hemoglobinopathy MCV 69.4 fL (80.0-100.0) L 12/30/17 06:54 Hemoglobinopathy MCH 21.3 pg (27.0-33.0) L 12/30/17 06:54 Hemoglobinopathy RDW 17.1 % (11.0-15.0) H 12/30/17 06:54 Hemoglobinopathy Interp See note 12/30/17 06:54 Haptoglobin 243.1 mg/dL (30.0-200.0) H 12/30/17 13:14 D-Dimer, Quantitative < 200 ng/mlDDU (0-243) 12/28/17 15:50 pO2 45 mm/Hg (30-55) 12/28/17 19:00 VBG pH 7.41 (7.32-7.43) 12/28/17 19:00 VBG pCO2 45 mmHg (40-60) 12/28/17 19:00 VBG HCO3 27.0 mmol/L 12/28/17 19:00 VBG Total CO2 29.9 mmol/L (22-28) H 12/28/17 19:00 VBG O2 Sat (Calc) 81.7 % (40-65) H 12/28/17 19:00 VBG Base Excess 3.2 mmol/L (0.0-2.0) H 12/28/17 19:00 VBG Potassium 3.4 mmol/L (3.6-5.2) L 12/28/17 19:00 Sodium 141.0 mmol/l (132-148) 12/28/17 19:00 Chloride 107.0 mmol/L (98-107) 12/28/17 19:00 Glucose 90 mg/dl (75-110) 12/28/17 19:00 Lactate 0.8 mmol/L (0.7-2.1) 12/28/17 19:00 Sodium 140 mmol/L (132-148) 01/01/18 06:47 Potassium 3.5 mmol/L (3.6-5.2) L 01/01/18 06:47 Chloride 107 mmol/L (98-107) 01/01/18 06:47 Carbon Dioxide 19 mmol/L (22-30) L 01/01/18 06:47 Anion Gap 18 (10-20) 01/01/18 06:47 BUN 8 mg/dL (9-20) L 01/01/18 06:47 Creatinine 0.8 mg/dL (0.8-1.5) 01/01/18 06:47 Est GFR ( Amer) > 60 01/01/18 06:47 Est GFR (Non-Af Amer) > 60 01/01/18 06:47 Random Glucose 81 mg/dL (75-110) 01/01/18 06:47 Calcium 8.8 mg/dl (8.6-10.4) 01/01/18 06:47 Phosphorus 3.5 mg/dL (2.5-4.5) 12/30/17 06:54 Magnesium 2.2 mg/dL (1.6-2.3) 12/30/17 06:54 Iron 18 ug/dL (49-181) L 12/29/17 20:50 TIBC 312 ug/dL (250-450) 12/30/17 06:54 % Saturation 6 (20-55) L 12/30/17 06:54 Ferritin 18.7 ng/mL 12/30/17 06:54 Total Bilirubin 0.4 mg/dL (0.2-1.3) 01/01/18 06:47 Direct Bilirubin 0.4 mg/dL (0.0-0.4) 12/30/17 13:14 AST 40 U/L (17-59) 01/01/18 06:47 ALT 28 U/L (21-72) 01/01/18 06:47 Alkaline Phosphatase 61 U/L (38-126) 01/01/18 06:47 Lactate Dehydrogenase 541 U/L (313-618) 12/30/17 13:14 Total Creatine Kinase 347 U/L (55-170) H 12/28/17 20:43 CK-MB (Mass) 1.01 ng/mL (0.0-3.38) 12/28/17 20:43 Troponin I < 0.0120 ng/mL (0.00-0.120) 12/28/17 20:43 Total Protein 7.4 g/dL (6.3-8.3) 01/01/18 06:47 Albumin 3.6 g/dL (3.5-5.0) 01/01/18 06:47 Globulin 3.8 gm/dL (2.2-3.9) 01/01/18 06:47 Albumin/Globulin Ratio 0.9 (1.0-2.1) L 01/01/18 06:47 Triglycerides 87 mg/dL (0-149) 12/29/17 07:27 Cholesterol 100 mg/dL (0-199) 12/29/17 07:27 LDL Cholesterol Direct 54 mg/dL (0-129) 12/29/17 07:27 HDL Cholesterol 22 mg/dL (30-70) L 12/29/17 07:27 Vitamin B12 260 pg/mL (239-931) 12/30/17 06:54 Folate 13.1 ng/mL 12/30/17 06:54 Procalcitonin < 0.05 NG/ML (0.19-0.49) L 12/28/17 20:43 Free T4 1.43 ng/dL (0.78-2.19) 12/29/17 07:27 TSH 3rd Generation 0.87 mIU/L (0.46-4.68) 12/29/17 07:27 Venous Blood Potassium 3.4 mmol/L (3.6-5.2) L 12/28/17 19:00 Urine Color Straw (YELLOW) 12/28/17 16:26 Urine Clarity Clear (Clear) 12/28/17 16:26 Urine pH 7.0 (5.0-8.0) 12/28/17 16:26 Ur Specific [place] 1.004 (1.003-1.030) 12/28/17 16:26 Urine Protein Negative mg/dL (NEGATIVE) 12/28/17 16:26 Urine Glucose (UA) Normal mg/dL (Normal) 12/28/17 16:26 Urine Ketones Negative mg/dL (NEGATIVE) 12/28/17 16:26 Urine Blood Negative (NEGATIVE) 12/28/17 16:26 Urine Nitrate Negative (NEGATIVE) 12/28/17 16:26 Urine Bilirubin Negative (NEGATIVE) 12/28/17 16:26 Urine Urobilinogen Normal mg/dL (0.2-1.0) 12/28/17 16:26 Ur Leukocyte Esterase Neg [place]/uL (Negative) 12/28/17 16:26 Urine WBC (Auto) < 1 /hpf (0-5) 12/28/17 16:26 Urine RBC (Auto) < 1 /hpf (0-3) 12/28/17 16:26 Stool Occult Blood Positive (NEGATIVE) H 12/31/17 22:09 HIV 1&2 Antibody Screen Negative (NEGATIVE) 12/29/17 07:27 Infectious [place] Assay Negative (NEGATIVE) 12/30/17 13:14 Influenza Typ A,B (EIA) Negative for flu a/b (NEGATIVE) 12/28/17 18:33 Ur L.pneumophila Ag Negative (NEGATIVE) 12/28/17 20:38 Mycoplasma pneumon IgM Negative (NEGATIVE) 12/29/17 07:27 Grp A Beta Strep Ag Negative (NEGATIVE) 12/28/17 20:19 TB Test (QFT) Nil 0.05 IU/mL 12/29/17 10:40 TB Test Mitogen - Nil 9.24 IU/mL 12/29/17 10:40 TB Test TB - Nil 0.07 IU/mL 12/29/17 10:40 TB Test (QFT) Negative (Negative) 12/29/17 10:40 Attending/Attestation - Attestation I have personally seen and examined this patient.: Yes I have fully participated in the care of the patient.: Yes I have reviewed all pertinent clinical information, including history, physical exam and plan: Yes Notes (Text): 01/01/18 18:21 Patient was seen and examined with the resident. Exam, assessment and plan and discharge instructions were gone over with the resident. Michael Siddiqui D.O.
[2018-01-01] MEDS ORDERED: Pneumococcal 23-Valent Vaccine IM ONE (10:10)
[2018-01-01] MEDS: Azithromycin 500 MG in Sodium Chloride 0.9% 250 ML IVPB SCH (10:15)
--- NOTE | 2018-01-01 13:21 | CARD ---
APPROVED REPORT EKG Measurement Heart [id number] DE [id number] <Conclusion> Normal sinus rhythm Right superior axis deviation Abnormal ECG
[2018-01-01 15:42] VITALS: BP 105/65; PULSE 88; RESP 18; TEMP 97.6
== END 2018-01-01 17:15 | disposition home or self-care (01) | DRG 89 ==
LOC: C.ER 14:59 → C.9E 18:32 → C.3T 19:26 → C.9E 19:33 → C.3T 20:40 → C.9E 20:54 → C.6T 12-29 00:31
PROVIDERS: ADMIT Family Medicine; ATTEND Family Medicine
DX: J18.9 Pneumonia, unspecified organism (principal); I65.29 Occlusion and stenosis of unspecified carotid artery; E87.6 Hypokalemia; E86.0 Dehydration; I51.7 Cardiomegaly; D50.9 Iron deficiency anemia, unspecified

== ENCOUNTER 2018-02-22 07:20 | Inpatient (IN) | payer OTHER ==
[2018-02-22] MEDS ORDERED: Morphine 4 MG/ML VIAL IV STA (07:40)
[2018-02-22] MEDS ORDERED: Morphine 4 MG/ML VIAL ONE (07:54)
[2018-02-22] MEDS ORDERED: Sodium Chloride 0.9% 1,000 ML IV ONE (08:00)
[2018-02-22 08:23] LABS: BASO % 0.2 % (0.0-2.0); EOS % 0.1 % (0.0-4.0); HEMOGLOBIN 14.2 g/dL (12.0-18.0); LYMPH # 1.4 K/uL (1.0-4.3); LYMPH % 10.6 % (20.0-40.0); MEAN CELL VOLUME 74.2 fL (80.0-94.0); MEAN CORPUSCULAR HEMOGLOBIN 24.1 pg (27.0-31.0); MEAN CORPUSCULAR HGB CONC 32.5 g/dL (33.0-37.0); MEAN PLATELET VOLUME 9.4 fL (7.2-11.7); MONO % 7.4 % (0.0-10.0); NEUT # 10.5 K/uL (1.8-7.0); NEUT % 81.7 % (50.0-75.0); NRBC % 0.1 % (0.0-2.0); RBC 5.89 Mil/uL (4.40-5.90); RED CELL DISTRIBUTION WIDTH 19.9 % (11.5-14.5); WHITE BLOOD COUNT 12.9 K/uL (4.8-10.8)
[2018-02-22 08:40] LABS: ALB/GLOB RATIO 1.1 (1.0-2.1); ALBUMIN 4.3 g/dL (3.5-5.0); ALT/SGPT 56 U/L (21-72); AST/SGOT 57 U/L (17-59); BLOOD UREA NITROGEN 12 mg/dL (9-20); CALCIUM 8.9 mg/dl (8.6-10.4); GFR AFRICAN-AMERICAN > 60; GFR NON-AFRICAN AMERICAN > 60; LIPASE 27 U/L (23-300)
[2018-02-22] MEDS ORDERED: Iodixanol 320 MG/ML 100 ML BOTTLE IV ONE (08:49)
--- NOTE | 2018-02-22 10:21 | CT ---
PROCEDURE: CT Abdomen and Pelvis with contrast HISTORY: abd pain COMPARISON: Lung base sections from prior chest CT 12/28/2017. TECHNIQUE: Following the intravenous administration of iodinated contrast material, a CT examination of the abdomen and pelvis performed from the domes of the diaphragms to the symphysis pubis with reformatted datasets provided not only axial but also sagittal and coronal planes. Oral contrast was not administered as per referring physician request. Contrast dose: Visipaque 320, 100 cc Radiation dose: Total exam DLP = 598.95 mGy-cm. This CT exam was performed using one or more of the following dose reduction techniques: Automated exposure control, adjustment of the mA and/or kV according to patient size, and/or use of iterative reconstruction technique. FINDINGS: LOWER THORAX: A low-density fluid collection is seen at the left lower lobe none measuring 3.3 by is 1.7 cm compare to 4.1 x 3.1 cm on 12/28/2017. Its internal density measures only 16 Hounsfield units and may represent burned-out pulmonary abscess or other proteinaceous collection. LIVER: Reiterated hepatic steatosis without mass or intrahepatic biliary dilatation evident. GALLBLADDER AND BILE DUCTS: Unremarkable. PANCREAS: Unremarkable. No gross lesion or ductal dilatation. SPLEEN: Unremarkable. ADRENALS: Unremarkable. No mass. KIDNEYS AND URETERS: Tiny lucency is identified at the mid to lower pole right kidney laterally, too small to characterize with both kidneys otherwise unremarkable. VASCULATURE: Unremarkable. No aortic aneurysm. BOWEL: The stomach is collapsed in the bowel does not appear obstructed. However, there is dilatation of the appendix with prominent mural thickening and mild local pericolic reaction. Appendecolith is appreciated at the proximal appendix obstructing the mid and distal appendix, compatible with appendicitis without CT sign of rupture at this time. APPENDIX: Appendicitis as per bowel section above. PERITONEUM: Peritonitis or reaction. No ascites or free air. LYMPH NODES: Unremarkable. No enlarged lymph nodes. BLADDER: Unremarkable. REPRODUCTIVE: Unremarkable. BONES: No acute fracture. Unremarkable. No obstruction. No gross mural thickening. OTHER FINDINGS: None. IMPRESSION: 1. Findings compatible with appendicitis without CT sign of rupture. 2. Reiteration of hepatic steatosis. 3. Diminishing left lower lobe basilar fluid collection suspicious for small abscess or other proteinaceous fluid collection.
[2018-02-22] MEDS ORDERED: Piperacillin/Tazobact 3.375 GM in Sodium Chloride 100 ML IVPB STA (10:31)
--- NOTE | 2018-02-22 10:34 | C.PDOC ---
History Of Present Illness 43 year old male with no past medical history presents to the emergency department with complaints of RLQ pain since 3AM this morning associated with nausea. Patient denies vomiting, diarrhea, fever, chills, or urinary symptoms. Patient reports no history of abdominal surgery. He states that the pain radiates to his right testicle. Time Seen by Provider: 02/22/18 07:30 Chief Complaint (Nursing): Abdominal Pain History Per: Patient History/Exam Limitations: no limitations Onset/Duration Of Symptoms: Hrs (8) Current Symptoms Are (Timing): Still Present Location Of Pain/Discomfort: RLQ Radiation Of Pain To:: Other (right testicle) Quality Of Discomfort: "Pain" Associated Symptoms: Nausea. denies: Fever, Chills, Vomiting, Diarrhea, Urinary Symptoms Past Medical History Reviewed: Historical Data, Nursing Documentation, Vital Signs Vital Signs: Last Vital Signs Temp 97.8 F 02/23/18 07:10 Pulse 79 02/23/18 07:10 Resp 18 02/23/18 07:10 BP 107/69 02/23/18 07:10 Pulse Ox 97 02/23/18 07:10 - Medical History PMH: HTN Surgical History: No Surg Hx - [facility] Procedures RESECTION OF APPENDIX, PERCUTANEOUS ENDOSCOPIC APPROACH (02/22/18) Family History: States: No Known Family Hx - Social History Hx Alcohol Use: No Hx Substance Use: No - Immunization History Hx Tetanus Toxoid Vaccination: No Hx Influenza Vaccination: No Hx Pneumococcal Vaccination: No Review Of Systems Except As Marked, All Systems Reviewed And Found Negative. Gastrointestinal: Positive for: Nausea, Abdominal Pain (RLQ) Genitourinary: Positive for: Other (testicular pain) Physical Exam - Physical Exam Appears: Non-toxic, No Acute Distress Skin: Normal Color, Warm, Dry Head: Atraumatic, Normacephalic Eye(s): bilateral: Normal Inspection, PERRL, EOMI Nose: Normal Oral Mucosa: Moist Chest: Symmetrical Cardiovascular: Rhythm Regular, No Murmur Respiratory: Normal Breath Sounds, No Rales, No Rhonchi, No Wheezing Gastrointestinal/Abdominal: Soft, Tenderness (rlq, no guarding, no rebound, no distention), No Guarding, No Rebound Male Genital: Testicular Swelling (bilateral testes distended) Extremity: Normal ROM Extremity: Bilateral: Atraumatic, Normal Color And Temperature Neurological/Psych: Oriented x3, Normal Speech, Normal Cognition ED Course And Treatment - Laboratory Results Result Diagrams: 02/22/18 08:16 02/22/18 08:16 O2 Sat by Pulse Oximetry: 96 (RA) Pulse Ox Interpretation: Normal Medical Decision Making Medical Decision Making: Plan: CT Abdomen and Pelvis with Contrast CMP LIpase CBC Morphine 2mg IV NaCl IV Fluids Toradol 30mg IVP Zofran 4mg IVP Zosyn 3.375g Urinalysis Assessment: RLQ Abdominal Pain. CT demonstrates appendicitis. Surgical consult done at 10:32. Antibiotics given. Patient will be admitted to Dr. Brown. Disposition Discussed With : Kirk Brown Doctor Will See Patient In The: ED Counseled Patient/Family Regarding: Studies Performed, Diagnosis - Disposition Disposition: HOSPITALIZED Disposition Time: 10:33 Condition: FAIR - Clinical Impression Clinical Impression: Appendicitis - Scribe Statement The provider has reviewed the documentation as recorded by the Scribe (Nick Bernal) Provider Attestation: All medical record entries made by the Scribe were at my direction and personally dictated by me. I have reviewed the chart and agree that the record accurately reflects my personal performance of the history, physical exam, medical decision making, and the department course for this patient. I have also personally directed, reviewed, and agree with the discharge instructions and disposition.
[2018-02-22] MEDS ORDERED: Piperacillin/Tazobact 3.375 gm 100 ML IVPB ONE (10:44)
[2018-02-22 10:56] LABS: URINE BILIRUBIN NEGATIVE (NEGATIVE); URINE BLOOD NEGATIVE (NEGATIVE); URINE CLARITY Clear (Clear); URINE COLOR Yellow (YELLOW); URINE GLUCOSE (UA) NORMAL (Normal); URINE LEUKOCYTE ESTERASE NEG Leu/uL (Negative); URINE PROTEIN NEGATIVE (NEGATIVE); URINE UROBILINOGEN NORMAL mg/dL (0.2-1.0)
--- NOTE | 2018-02-22 11:03 | CP.PCM.HP ---
History of Present Illness - History of Present Illness History of Present Illness: Surgery: Dr. Brown CC: RLQ abdominal pain HPI: Patient is a 43 y/o male who presents to ER complaining of RLQ abdominal pain since last night. He reports the pain as severe which limited from working. He reports nausea no vomiting. He reports last meal was around 11pm last night. He denies f/c/ diarrhea or constipation. He denies having pain like this in the past. PMH: none PSH: denies Social: denies abuse of ETOH, tobacco, or drug abuse Present on Admission - Present on Admission Any Indicators Present on Admission: No Review of Systems - Review of Systems All systems: reviewed and no additional remarkable complaints except Review of Systems: unless stated in HPI Past Patient History - Infectious Disease Hx of Infectious Diseases: None - Past Social History Smoking Status: Never Smoked Alcohol: None Drugs: Denies - CARDIAC Hx Hypertension: Yes - MUSCULOSKELETAL/RHEUMATOLOGICAL Hx Falls: No - PSYCHIATRIC Hx Substance Use: No - SURGICAL HISTORY Hx Surgeries: No Meds Allergies/Adverse Reactions: Allergies Allergy/AdvReac Type Severity Reaction Status Date / Time No Known Allergies Allergy Verified 02/22/18 08:35 Physical Exam - Constitutional Appears: Non-toxic, No Acute Distress - Head Exam Head Exam: ATRAUMATIC, NORMOCEPHALIC - Eye Exam Eye Exam: EOMI, Normal appearance - ENT Exam ENT Exam: Mucous Membranes Moist - Respiratory Exam Respiratory Exam: NORMAL BREATHING PATTERN. absent: Respiratory Distress - Cardiovascular Exam Cardiovascular Exam: REGULAR RHYTHM. absent: Tachycardia - GI/Abdominal Exam GI & Abdominal Exam: Guarding (RLQ), Soft, Tenderness (+ McBurney's ). absent: Rebound, Rigid - Extremities Exam Extremities exam: Positive for: normal inspection. Negative for: calf tenderness - Neurological Exam Neurological exam: Alert, Oriented x3 - Psychiatric Exam Psychiatric exam: Normal Affect, Normal Mood - Skin Skin Exam: Diaphoretic, Intact, Warm Results - Vital Signs Recent Vital Signs: Last Vital Signs Temp 97.9 F 02/22/18 07:25 Pulse 76 02/22/18 10:47 Resp 16 02/22/18 10:47 BP 118/68 02/22/18 10:47 Pulse Ox 96 02/22/18 10:49 - Labs Result Diagrams: 02/22/18 08:16 02/22/18 08:16 Labs: Laboratory Results - last 24 hr 02/22/18 02/22/18 02/22/18 08:16 08:16 10:48 WBC 12.9 H D RBC 5.89 Hgb 14.2 D Hct 43.7 MCV 74.2 L D MCH 24.1 L MCHC 32.5 L RDW 19.9 H Plt Count 199 MPV 9.4 Neut % (Auto) 81.7 H Lymph % (Auto) 10.6 L [place] % (Auto) 7.4 Eos % (Auto) 0.1 Baso % (Auto) 0.2 Neut # (Auto) 10.5 H Lymph # (Auto) 1.4 [place] # (Auto) 1.0 H Eos # (Auto) 0.0 Baso # (Auto) 0.0 Sodium 140 Potassium 3.7 Chloride 105 Carbon Dioxide 23 Anion Gap 16 BUN 12 Creatinine 0.8 Est GFR ( Amer) > 60 Est GFR (Non-Af Amer) > 60 Random Glucose 139 H Calcium 8.9 Total Bilirubin 1.1 AST 57 ALT 56 Alkaline Phosphatase 87 Total Protein 8.4 H Albumin 4.3 Globulin 4.0 H Albumin/Globulin Ratio 1.1 Lipase 27 Urine Color Yellow Urine Clarity Clear Urine pH 7.0 Ur Specific [place] 1.005 Urine Protein Negative Urine Glucose (UA) Normal Urine Ketones Negative Urine Blood Negative Urine Nitrate Negative Urine Bilirubin Negative Urine Urobilinogen Normal Ur Leukocyte Esterase Neg Urine WBC (Auto) < 1 Urine RBC (Auto) 2 - Imaging and Cardiology CT scan - abdomen Status: Image reviewed by me, Report reviewed by me (dilated appendix with eliane- appendiceal changes) Assessment & Plan - Assessment and Plan (Free Text) Assessment: 43 y/o male w/ abdominal pain 2/2 acute appendicitis Plan: -OR for lap appy today, consent obtained from patient. Risk benefits of surgical intervention and procedure discussed with patient. All questions answered and patient agrees to proceed with operation -IV zosyn -NPO -IVF -morphine for pain -zofran -patient seen and examined with Dr. Kevin Siddiqui PGY3 - Date & Time Date: 02/22/18 Time: 11:08
[2018-02-22] MEDS ORDERED: Propofol 10 mg/ml Inj (20 ML) ONE ×2 (11:55→12:33)
[2018-02-22] MEDS ORDERED: Midazolam 2 MG/2 ML VIAL ONE (11:55)
[2018-02-22] MEDS ORDERED: Oxycodone/Acetaminophen 5/325 mg Tab PO PRN (12:58)
--- NOTE | 2018-02-22 13:00 | PCM.SURG1 ---
Surgeon's Initial Post Op Note - Surgeon's Notes Surgeon: Dr. Cardona Panel Beater: Dr. Uriostegui PGY3 Type of Anesthesia: General Endo Pre-Operative Diagnosis: acute appendicitis Operative Findings: inflammed appendix Post-Operative Diagnosis: acute appendicitis Operation Performed: laparoscopic appendectomy Specimen/Specimens Removed: appendix Estimated Blood Loss: EBL {In ML}: 10 Blood Products Given: N/A Drains Used: No Drains Post-Op Condition: Good Date of Surgery/Procedure: 02/22/18 Time of Surgery/Procedure: 13:00
[2018-02-22] MEDS ORDERED: HYDROmorphone 0.5 mg/0.5 ml ISec IVP PRN (13:03)
[2018-02-22] MEDS ORDERED: Lactated Ringer's 1,000 ML IV ONE (14:00)
[2018-02-22] MEDS: Morphine 4 MG/ML VIAL IVP PRN ×2 (16:36→21:45)
[2018-02-22] MEDS: Sodium Chloride 0.9% 1,000 ML IV SCH ×2 (16:37→21:45)
[2018-02-22] MEDS: Piperacill/Tazo 3.375gm in Dex 3.375 GM/50 ML BAG IVPB SCH ×3 (16:45→23:13)
--- NOTE | 2018-02-22 20:58 | OP ---
PROCEDURE DATE: 02/22/2018 SURGEON: Kirk Brown MD SIGN LETTERER: Dr. Uriostegui. TYPE OF ANESTHESIA: General. ANESTHESIOLOGIST: Dr. Malik. PREOPERATIVE DIAGNOSIS: Acute appendicitis. POSTOPERATIVE DIAGNOSIS: Acute appendicitis. PROCEDURE: Laparoscopic appendectomy. DESCRIPTION OF PROCEDURE: With the patient in the supine position, under adequate general anesthesia, the abdomen was prepped and draped in the usual sterile manner. Veress needle puncture was performed at the umbilicus with insufflation to 15 cm water pressure of CO2 and a 10 mm laparoscopic trocar was inserted via an infraumbilical incision. Under direct vision, 5 mm and 12 mm trocar were inserted in the left lower quadrant. The appendix was identified. It was markedly dilated and mildly inflamed, and the mesoappendix was grasped and dissected. The mesoappendix was divided with an Endo PATRICIA stapler. The area of the appendiceal artery was reinforced with hemoclips. The appendix was then divided close to the cecum beneath what appeared to be an obstructing appendicolith, also using the Endo PATRICIA stapler. The stump was examined for hemostasis. The appendix was placed in a specimen retrieval bag and removed via the 12 mm port site. The right lower quadrant was suctioned and noted to be dry and the pneumoperitoneum was released and the trocars were removed. The umbilical and 12 mm port sites were closed with fascial [id number] sutures of 0 Vicryl. All incisions were closed with 4-0 Monocryl, subcuticular sutures, and Steri-Strips. Dry sterile dressings were applied. The patient tolerated the procedure well and transferred to recovery room in stable condition. Estimated blood loss for the procedure was 10 mL. Kirk Brown MD
[2018-02-23] MEDS: Sodium Chloride 0.9% 1,000 ML IV SCH (01:30)
[2018-02-23] MEDS: Piperacill/Tazo 3.375gm in Dex 3.375 GM/50 ML BAG IVPB SCH (04:24)
[2018-02-23 07:49] VITALS: BP 107/69; PULSE 79; RESP 18; TEMP 97.8
--- NOTE | 2018-02-23 07:51 | CP.PCM.DIS ---
Provider - Provider Date of Admission: 02/22/18 10:32 Attending physician: Kirk Brown MD Time Spent in preparation of Discharge (in minutes): 20 Diagnosis - Discharge Diagnosis (1) Appendicitis Status: Acute Priority: High Hospital Course - Lab Results Lab Results: Most Recent Lab Values WBC 12.9 K/uL (4.8-10.8) H D 02/22/18 08:16 RBC 5.89 Mil/uL (4.40-5.90) 02/22/18 08:16 Hgb 14.2 g/dL (12.0-18.0) D 02/22/18 08:16 Hct 43.7 % (35.0-51.0) 02/22/18 08:16 MCV 74.2 fL (80.0-94.0) L D 02/22/18 08:16 MCH 24.1 pg (27.0-31.0) L 02/22/18 08:16 MCHC 32.5 g/dL (33.0-37.0) L 02/22/18 08:16 RDW 19.9 % (11.5-14.5) H 02/22/18 08:16 Plt Count 199 K/uL (130-400) 02/22/18 08:16 MPV 9.4 fL (7.2-11.7) 02/22/18 08:16 Neut % (Auto) 81.7 % (50.0-75.0) H 02/22/18 08:16 Lymph % (Auto) 10.6 % (20.0-40.0) L 02/22/18 08:16 [place] % (Auto) 7.4 % (0.0-10.0) 02/22/18 08:16 Eos % (Auto) 0.1 % (0.0-4.0) 02/22/18 08:16 Baso % (Auto) 0.2 % (0.0-2.0) 02/22/18 08:16 Neut # (Auto) 10.5 K/uL (1.8-7.0) H 02/22/18 08:16 Lymph # (Auto) 1.4 K/uL (1.0-4.3) 02/22/18 08:16 [place] # (Auto) 1.0 K/uL (0.0-0.8) H 02/22/18 08:16 Eos # (Auto) 0.0 K/uL (0.0-0.7) 02/22/18 08:16 Baso # (Auto) 0.0 K/uL (0.0-0.2) 02/22/18 08:16 Sodium 140 mmol/L (132-148) 02/22/18 08:16 Potassium 3.7 mmol/L (3.6-5.2) 02/22/18 08:16 Chloride 105 mmol/L (98-107) 02/22/18 08:16 Carbon Dioxide 23 mmol/L (22-30) 02/22/18 08:16 Anion Gap 16 (10-20) 02/22/18 08:16 BUN 12 mg/dL (9-20) 02/22/18 08:16 Creatinine 0.8 mg/dL (0.8-1.5) 02/22/18 08:16 Est GFR ( Amer) > 60 02/22/18 08:16 Est GFR (Non-Af Amer) > 60 02/22/18 08:16 Random Glucose 139 mg/dL (75-110) H 02/22/18 08:16 Calcium 8.9 mg/dl (8.6-10.4) 02/22/18 08:16 Total Bilirubin 1.1 mg/dL (0.2-1.3) 02/22/18 08:16 AST 57 U/L (17-59) 02/22/18 08:16 ALT 56 U/L (21-72) 02/22/18 08:16 Alkaline Phosphatase 87 U/L (38-126) 02/22/18 08:16 Total Protein 8.4 g/dL (6.3-8.3) H 02/22/18 08:16 Albumin 4.3 g/dL (3.5-5.0) 02/22/18 08:16 Globulin 4.0 gm/dL (2.2-3.9) H 02/22/18 08:16 Albumin/Globulin Ratio 1.1 (1.0-2.1) 02/22/18 08:16 Lipase 27 U/L (23-300) 02/22/18 08:16 Urine Color Yellow (YELLOW) 02/22/18 10:48 Urine Clarity Clear (Clear) 02/22/18 10:48 Urine pH 7.0 (5.0-8.0) 02/22/18 10:48 Ur Specific [place] 1.005 (1.003-1.030) 02/22/18 10:48 Urine Protein Negative mg/dL (NEGATIVE) 02/22/18 10:48 Urine Glucose (UA) Normal mg/dL (Normal) 02/22/18 10:48 Urine Ketones Negative mg/dL (NEGATIVE) 02/22/18 10:48 Urine Blood Negative (NEGATIVE) 02/22/18 10:48 Urine Nitrate Negative (NEGATIVE) 02/22/18 10:48 Urine Bilirubin Negative (NEGATIVE) 02/22/18 10:48 Urine Urobilinogen Normal mg/dL (0.2-1.0) 02/22/18 10:48 Ur Leukocyte Esterase Neg [place]/uL (Negative) 02/22/18 10:48 Urine WBC (Auto) < 1 /hpf (0-5) 02/22/18 10:48 Urine RBC (Auto) 2 /hpf (0-3) 02/22/18 10:48 - Hospital Course Hospital Course: Patient was admitted on 02/22 with diagnosis of appendicitis. Patient was taken to OR for lap appy. Procedure uncomplicated and patient tolerated well. POD1 pain controlled, tolerating diet, ambulating, voiding. In good condition for d/ c home. Patient instructed to f/u with Dr. Brown in 1-2 weeks. Call office for appointment. - Date & Time of H&P Date of H&P: 02/22/18 Discharge Exam - Head Exam Head Exam: ATRAUMATIC, NORMOCEPHALIC - Eye Exam Eye Exam: EOMI, Normal appearance - ENT Exam ENT Exam: Mucous Membranes Moist - Respiratory Exam Respiratory Exam: NORMAL BREATHING PATTERN, UNREMARKABLE. absent: Respiratory Distress - Cardiovascular Exam Cardiovascular Exam: REGULAR RHYTHM. absent: Tachycardia - GI/Abdominal Exam GI & Abdominal Exam: Soft. absent: Distended, Guarding, Rebound, Tenderness Additional comments: dermabond over 3 surgical incisions - Extremities Exam Extremities exam: normal inspection - Neurological Exam Neurological exam: Alert, Oriented x3 - Psychiatric Exam Psychiatric exam: Normal Affect, Normal Mood Discharge Plan - Follow Up Plan Condition: FAIR Disposition: HOME/ ROUTINE Patient education suggested?: Yes Instructions: Appendectomy, Laparoscopic Surgery, Appendectomy, Laparoscopic Surgery (DC), How to Prevent Surgical Site Infections, Laceration Repair With Glue (DC) Additional Instructions: Take Tylenol or Motrin for pain. Can shower today. There is special glue over the incisions. Do not pick glue off, will fall off on its own. If Fever greater than 100.4 take over the counter tylneol. If fever persists go to the ER. In 1-2 weeks follow up with Dr. Brown in office. Referrals: Kirk Brown MD [Staff Provider] -
[2018-02-25 17:43] VITALS: O2SAT 96
== END 2018-02-23 14:50 | disposition home or self-care (01) | DRG 343 ==
LOC: C.ER 07:20 → C.9E 10:32 → C.6T 13:11
PROVIDERS: ADMIT Specialist; ATTEND Specialist
PROC: 0DTJ4ZZ Resection of Appendix, Percutaneous Endoscopic Approach (ICD-10-PCS; principal; 2018-02-22 11:45)
DX: K35.80 Unspecified acute appendicitis (principal); I10 Essential (primary) hypertension